=== PATIENT | female | born 1935 | race Caucasian/White ===

== ENCOUNTER → 2017-09-06 13:17 | Outpatient (CLI) | payer OTHER, SELFPAY ==
--- NOTE | 2017-09-06 13:18 | DI.US.S_ITS ---
Patient Name: RUBY CASTRO date: 1935 Sex: F Attending Physician: John Indications: Date: 09/06/2017 14:13 At the request of: BOBY MCGRATH Procedure: US breast LT limited ULTRASOUND OF LEFT BREAST: 09/06/2017 CLINICAL: Focal left breast pain. Comparison is made to exams dated: 09/06/2017 mammogram, 02/04/2016 mammogram, and 11/19/2014 mammogram - [facility]. Ultrasound of the left breast was performed on the area of interest. Agrawal scale images of the real-time examination were reviewed. IMPRESSION: NEGATIVE There is no sonographic evidence of malignancy. There is no mammographic or sonographic abnormality seen in the left breast to correspond with the pain, however, clinical followup is recommended. A 1 year screening mammogram is recommended. This exam was interpreted at Station ID: [id number]. SUMMARY: This was discussed with the patient at the time of the exam. Electronically Signed By: Alka March M.D. lk/:09/06/2017 14:23:39 letter sent: Clinical Evaluation Ultrasound BI-RADS: 1 Negative Dictated by: Alka March M.D. on 09/06/2017 at 14:22 Approved by: Alka March M.D. on 09/06/2017 at 14:23
--- NOTE | 2017-09-06 13:18 | DI.MG.S_ITS ---
BILATERAL DIGITAL DIAGNOSTIC MAMMOGRAM 3D/2D: 09/06/2017 CLINICAL: Left breast mass with pain. Family history of breast cancer. Comparison is made to exams dated: 02/04/2016 mammogram, 11/19/2014 mammogram, and 03/09/2013 mammogram - [facility]. The tissue of both breasts is heterogeneously dense. This may lower the sensitivity of mammography. No significant masses, calcifications, or other findings are seen in either breast. IMPRESSION: INCOMPLETE: NEEDS ADDITIONAL IMAGING EVALUATION There is no mammographic abnormality seen in the left breast to correspond with the pain, however, ultrasound is recommended. This exam was interpreted at Station ID: [id number]. NOTE: For mammograms, a report in lay terms will be sent to the patient. Approximately 15% of breast malignancies will not be visualized mammographically. In the management of a palpable breast mass, a negative mammogram must not discourage biopsy of a clinically suspicious lesion. Electronically Signed By: Alka barraza/heaven:09/06/2017 13:56:50 letter sent: Additional Imaging Needed ACR BI-RADS Category 0: Incomplete [id number]
== END ==
PROVIDERS: PCP Physician Assistant; Visit Provider Physician Assistant
DX: N64.4 Mastodynia (principal); N63.20 Unspecified lump in the left breast, unspecified quadrant; Z80.3 Family history of malignant neoplasm of breast
CPT/HCPCS: 76642; 77066; 77080; G0279

== ENCOUNTER 2018-02-13 11:15 | Outpatient (RCR) | payer OTHER, SELFPAY ==
--- NOTE | 2018-02-10 15:00 | PT.OIE ---
Current Diagnoses Benign paroxysmal vertigo, unspecified ear (02/10/18) Past Medical History (Last Updated 08/03/17 @ 08:33 by Karen Rossi LPN) Dermatitis (Chronic Unknown) Fibromyalgia (Chronic Unknown) GERD (gastroesophageal reflux disease) (Chronic Unknown) Glaucoma (Chronic Unknown) Hyperlipemia (Chronic Unknown) Hypertension (Chronic Unknown) IBS (irritable bowel syndrome) (Chronic Unknown) Low back pain (Chronic Unknown) Obstructive sleep apnea (Chronic ~2017) Osteoarthritis (Chronic Unknown) Peripheral neuropathy (Chronic Unknown) Chickenpox (Resolved Unknown) Hx of actinic keratosis (Resolved 09/2010) Measles (Resolved Unknown) Mumps (Resolved Unknown) Past Surgical History (Last Updated 08/03/17 @ 08:38 by Karen Rossi LPN) Hx of cataract surgery (Resolved Unknown) Provider Visit Care Team Role Provider Type Moira Lopez PA-C Primary Care Provider Advanced Commercial Account Executive Specialty: Medical Address: [address] [place] [address] Email: [email or web address] Lopez Roman PA-C Attending Provider Advanced Commercial Account Executive Specialty: Medical Address: [address] [place] [address], [facility] Email: Physical Therapy Initial Evaluation PT-OP-A Visit Information Start: 02/10/18 07:03 Freq: Status: Active Protocol: Document 02/10/18 10:30 AMB (Rec: 02/10/18 11:54 AMB [email or web address]) Out-Patient Physical Therapy Visit Information Visit Information Visit Type Initial Evaluation Visit Start Time 10:30 Visit Stop Time 11:15 Total Visit Minutes 45 Visit Number 1 Evaluation Information Evaluation Date 02/10/18 PT-OP-B Current Condition Start: 02/10/18 07:03 Freq: Status: Active Protocol: Document 02/10/18 10:30 AMB (Rec: 02/12/18 09:52 AMB [email or web address]) Current Condition History of Current Condition Onset Date December 2017 Current Complaints dizzy/spinning with getting out of bed History of Current Condition Pt reports new onset spinning. She had one fall when it first happened, but now just goes slow. She went to the walk in clinic and they diagnosed her with R BPPV with a [place]-Hallpike but did not perform an Callie maneuver. She does report multiple eye surgeries in her history as well as history of glaucoma. Chronic bilateral tinnitis, sinus issues. She usually takes Lyrica, but due to an issue with the pharmacy she has been out for the past 3 days. Treatment Goals Patient/Caregiver Goals Stop the spinning Prior Functional Status Baseline Function- ADL's Independent Baseline Function- Mobility Independent Current Functional Impairments (Reported) Functional Limitations- ADL's Slow and careful but still independent Personal Factors Other Personal Factors That May Effect Fibromyalgia, back pain, Therapy/Recovery neuropathy PT-OP-C Subjective Start: 02/10/18 07:03 Freq: Status: Active Protocol: Document 02/10/18 10:30 AMB (Rec: 02/12/18 09:52 AMB [email or web address]) Patient Questionnaires ABC- Activity Specific Balance Confidence Scale ABC Score 30 ABC Functional Impairment 20 to <40% Impaired (Score 61- 80) Dizziness Handicap Inventory DHI Score 58 DHI Functional Impairment 40 to 59% Impaired (Score 40- 59) PT-OP-G Mobility & Gait Start: 02/10/18 07:03 Freq: Status: Active Protocol: Document 02/10/18 10:30 AMB (Rec: 02/12/18 09:52 AMB [email or web address]) OP Gait Assessment Gait Gait Assistance Required: Independent Comments Gait Comments Ambulates carfully without assistive device PT-OP-O Vestibular Start: 02/10/18 07:03 Freq: Status: Active Protocol: Document 02/10/18 10:30 AMB (Rec: 02/12/18 09:52 AMB [email or web address]) Vestibular Assessment Visual Testing Smooth Pursuits Horizontal WFL Smooth Pursuits Vertical WFL Positional Testing [place]-Hallpike Positive Right PT-OP-Q Treatments Start: 02/10/18 07:03 Freq: Status: Active Protocol: Document 02/10/18 10:30 AMB (Rec: 02/12/18 09:52 AMB [email or web address]) Canalithic Repositioning BPPV Treatment Callie Affected Canal(s) R Reps 1 Comments Pt became very nauseous and did vomit after the manuever was complete PT-OP-T Assessment and Plan Start: 02/10/18 07:03 Freq: Status: Active Protocol: Document 02/10/18 10:30 AMB (Rec: 02/12/18 09:52 CAITY [email or web address]) Physical Therapy Assessment Rehab Potential Rehabilitation Potential Good Evaluation Complexity Number of Personal Factors/Comorbidities 1-2 Number of Body Systems Impaired 1-2 Clinical Presentation at Evaluation Stable Impairments Impairments Vestibular Goals Two Impairment Mobility Short Term Goal (STG) The patient will move from sit to stand without dizziness. STG Duration 2 weeks Custodial Goal (LTG) The patient will change direction while walking without dizziness. LTG Duration 4 weeks One Impairment Dizziness Short Term Goal (STG) The patient will show no nystagmus with [place]-Hallpike. STG Duration 2 weeks Custodial Goal (LTG) The patient will perform all bed mobility without spinning. LTG Duration 4 weeks Assessment Summary Assessment The patient attended physical therapy with new onset spinning with bed mobility, and right sided posterior canal BPPV. She was very sensitive to the Callie maneuver (possibly not helped by not being on Lyrica as she is used to) and only tolerated one repetition due to nausea. She did not have spinning after the Callie manuever, but did have clear nystagmus in the first position that lasted approximately 20 seconds. She will benefit from treatment of her BPPV, and then given her age and comorbidities, we will do a more thorough balance assessment at that time to make sure she is back to baseline. Physical Therapy Plan Frequency and Duration Frequency of Treatment 2x/Week Duration of Treatment 4 weeks Plan of Care Start Date 02/10/18 Plan of Care End Date 03/10/18 Therapeutic Interventions Therapeutic Interventions Balance Training Canalithic Repositioning Gait Training Home Exercise Program Neuromuscular Re-education Self-Care/Home Management Therapeutic Activities Therapeutic Exercises Next Visit Focus/Plan Next Note Type Treatment Note Next Visit Plan Reassess Alexander Ledesma
--- NOTE | 2018-02-10 15:00 | PT.OPPOC ---
Current Diagnoses Benign paroxysmal vertigo, unspecified ear (02/10/18) Provider Visit Care Team Role Provider Type Moira Lopez PA-C Primary Care Provider Advanced Change Management Consultant Specialty: Medical Address: [address] [place] [address], [address] Email: [email or web address] Roman PA-C Attending Provider Advanced Change Management Consultant Specialty: Medical Address: [address] [place] [address], [address] Email: Plan Of Care PT-OP-T Assessment and Plan Start: 02/10/18 07:03 Freq: Status: Active Protocol: Document 02/10/18 10:30 AMB (Rec: 02/12/18 09:52 AMB [email or web address]) Physical Therapy Assessment Rehab Potential Rehabilitation Potential Good Evaluation Complexity Number of Personal Factors/Comorbidities 1-2 Number of Body Systems Impaired 1-2 Clinical Presentation at Evaluation Stable Impairments Impairments Vestibular Goals Two Impairment Mobility Short Term Goal (STG) The patient will move from sit to stand without dizziness. STG Duration 2 weks Residential Goal (LTG) The patient will change direction while walking without dizziness. LTG Duration 4 weeks One Impairment Dizziness Short Term Goal (STG) The patient will show no nystagmus with [place]-Hallpike. STG Duration 2 weeks Residential Goal (LTG) The patient will perform all bed mobility without spinning. LTG Duration 4 weeks Assessment Summary Assessment The patient attended physical therapy with new onset spinning with bed mobility, and right sided posterior canal BPPV. She was very sensitive to the Callie maneuver (possibly not helped by not being on Lyrica as she is used to) and only tolerated one repetition due to nausea. She did not have spinning after the Callie manuever, but did have clear nystagmus in the first position that lasted approximately 20 seconds. She will benefit from treatment of her BPPV, and then given her age and comorbidities, we will do a more thorough balance assessment at that time to make sure she is back to baseline. Physical Therapy Plan Frequency and Duration Frequency of Treatment 2x/Week Duration of Treatment 4 weeks Plan of Care Start Date 02/10/18 Plan of Care End Date 03/10/18 Therapeutic Interventions Therapeutic Interventions Balance Training Canalithic Repositioning Gait Training Home Exercise Program Neuromuscular Re-education Self-Care/Home Management Therapeutic Activities Therapeutic Exercises Next Visit Focus/Plan Next Note Type Treatment Note Next Visit Plan Reassess Alexander Ledesma Plan of Care Dates Plan of Care Start Date 02/10/18 Plan of Care End Date 03/10/18 Please Sign and Return: I have reviewed this Plan of Care and certify that the skilled therapy services above are required to meet the patient?s needs. Physician Signature Date Printed Name and Credentials Clinical Instructor Signature Printed Name and Credentials
--- NOTE | 2018-02-13 12:55 | PT.OTN ---
Current Diagnoses Benign paroxysmal vertigo, unspecified ear (02/13/18) Physical Therapy Treatment Note PT-OP-A Visit Information Start: 02/10/18 07:03 Freq: Status: Active Protocol: Document 02/13/18 11:15 AMB (Rec: 02/13/18 12:55 AMB [email or web address]) Out-Patient Physical Therapy Visit Information Visit Information Visit Type Treatment Note Visit Start Time 11:15 Visit Stop Time 11:40 Total Visit Minutes 25 Visit Number 2 PT-OP-B Current Condition Start: 02/10/18 07:03 Freq: Status: Active Protocol: Document 02/10/18 10:30 AMB (Rec: 02/12/18 09:52 AMB [email or web address]) Current Condition History of Current Condition Onset Date December 2017 Current Complaints dizzy/spinning with getting out of bed History of Current Condition Pt reports new onset spinning. She had one fall when it first happened, but now just goes slow. 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 She does report multiple eye surgeries in her history as well as history of glaucoma. Chronic bilateral tinnitis, sinus issues. She usually takes Lyrica, but due to an issue with the pharmacy she has been out for the past 3 days. Treatment Goals Patient/Caregiver Goals Stop the spinning Prior Functional Status Baseline Function- ADL's Independent Baseline Function- Mobility Independent Current Functional Impairments (Reported) Functional Limitations- ADL's Slow and careful but still independent Personal Factors Other Personal Factors That May Effect Fibromyalgia, back pain, Therapy/Recovery neuropathy PT-OP-C Subjective Start: 02/10/18 07:03 Freq: Status: Active Protocol: Document 02/13/18 11:15 AMB (Rec: 02/13/18 12:55 AMB [email or web address]) OP-PT Subjective Patient Comments Patient Comments Pt states she has not had any spinning since her last visit. She has returned to sleeping on her R. PT-OP-G Mobility & Gait Start: 02/10/18 07:03 Freq: Status: Active Protocol: Document 02/10/18 10:30 AMB (Rec: 02/12/18 09:52 AMB [email or web address]) OP Gait Assessment Gait Gait Assistance Required: Independent Comments Gait Comments Ambulates carfully without assistive device PT-OP-O Vestibular Start: 02/10/18 07:03 Freq: Status: Active Protocol: Document 02/10/18 10:30 AMB (Rec: 02/12/18 09:52 AMB [email or web address]) Vestibular Assessment Visual Testing Smooth Pursuits Horizontal WFL Smooth Pursuits Vertical WFL Positional Testing [place]-Hallpike Positive Right PT-OP-Q Treatments Start: 02/10/18 07:03 Freq: Status: Active Protocol: Document 02/13/18 11:15 AMB (Rec: 02/13/18 12:55 AMB [email or web address]) Neuro Re-Education Treatment Balance Activities 1 Details NBOS head turn Other Activities 1 Details Recheck R/L [place]-hallpike Comments and R/L roll with no nystagmus with either Self-Care/Home Management Treatment Education Other Education Pt education in BPPV likliehood of recurrance, incidence, what to do in the future. PT-OP-T Assessment and Plan Start: 02/10/18 07:03 Freq: Status: Active Protocol: Document 02/13/18 11:15 AMB (Rec: 02/13/18 12:55 AMB [email or web address]) Physical Therapy Assessment Assessment Summary Assessment Pt without nystagmus or dizziness with any vestibular testing. Pt feels she is back to her baseline. Physical Therapy Plan Next Visit Focus/Plan Next Visit Plan Pt on hold for 30 days. To call if sx recur. Otherwise ready for d/c.
--- NOTE | 2018-03-21 10:01 | PT.OPDS ---
Current Diagnoses Benign paroxysmal vertigo, unspecified ear (02/13/18) Provider Visit Care Team Role Provider Type Moira Lopez PA-C Primary Care Provider Advanced Forestry Pilot Specialty: Medical Address: [address] [place] [address], [address] Email: [email or web address] PA-C Attending Provider Advanced Forestry Pilot Specialty: Medical Address: [address] [place] [address], [address] Email: Visit Number Visit Number 2 Discharge Summary PT-OP-B Current Condition Start: 02/10/18 07:03 Freq: Status: Active Protocol: Document 02/10/18 10:30 AMB (Rec: 02/12/18 09:52 AMB [email or web address]) Current Condition History of Current Condition Onset Date December 2017 Current Complaints dizzy/spinning with getting out of bed History of Current Condition Pt reports new onset spinning. She had one fall when it first happened, but now just goes slow. She went to the walk in clinic and they diagnosed her with R BPPV with a [place]-Hallpike but did not perform an Callie maneuver. She does report multiple eye surgeries in her history as well as history of glaucoma. Chronic bilateral tinnitis, sinus issues. She usually takes Lyrica, but due to an issue with the pharmacy she has been out for the past 3 days. Treatment Goals Patient/Caregiver Goals Stop the spinning Prior Functional Status Baseline Function- ADL's Independent Baseline Function- Mobility Independent Current Functional Impairments (Reported) Functional Limitations- ADL's Slow and careful but still independent Personal Factors Other Personal Factors That May Effect Fibromyalgia, back pain, Therapy/Recovery neuropathy PT-OP-C Subjective Start: 02/10/18 07:03 Freq: Status: Active Protocol: Document 02/13/18 11:15 AMB (Rec: 02/13/18 12:55 AMB [email or web address]) OP-PT Subjective Patient Comments Patient Comments Pt states she has not had any spinning since her last visit. She has returned to sleeping on her R. PT-OP-G Mobility & Gait Start: 02/10/18 07:03 Freq: Status: Active Protocol: Document 02/10/18 10:30 AMB (Rec: 02/12/18 09:52 AMB [email or web address]) OP Gait Assessment Gait Gait Assistance Required: Independent Comments Gait Comments Ambulates carfully without assistive device PT-OP-O Vestibular Start: 02/10/18 07:03 Freq: Status: Active Protocol: Document 02/10/18 10:30 AMB (Rec: 02/12/18 09:52 AMB [email or web address]) Vestibular Assessment Visual Testing Smooth Pursuits Horizontal WFL Smooth Pursuits Vertical WFL Positional Testing Ne[place]-Hallpike Positive Right PT-OP-T Assessment and Plan Start: 02/10/18 07:03 Freq: Status: Active Protocol: Document 03/21/18 09:53 AMB (Rec: 03/21/18 10:01 AMB [email or web address]) Physical Therapy Assessment Assessment Summary Assessment The patient did not show any signs of BPPV at her last visit. We kept her account open for a month, with the instruction for her to call if her symptoms returned. She has not called, she she is discharged at this time with resolution of her symptoms. Physical Therapy Plan Discharge Physical Therapy Discharge Reasons Goals Met
== END 2018-03-24 09:52 ==
LOC: PHYS 11:15
PROVIDERS: PCP Physician Assistant; Visit Provider Physician Assistant
DX: H81.10 Benign paroxysmal vertigo, unspecified ear (principal)
CPT/HCPCS: 97112; 97161; 97535

== ENCOUNTER → 2018-07-25 09:20 | Outpatient (CLI) | payer OTHER, SELFPAY ==
[2018-07-25 10:56] LABS: Microalbumin Urine Random 6.4 mg/dL (0-1.6)
[2018-07-25 10:59] LABS: Creatinine Urine Random 93.6 mg/dL; Microalbumi Creatinin Ratio Ur 68.3 ug/mg CR (<30)
[2018-07-25 11:18] LABS: Alanine Aminotransferase 18 IU/L (9-52); Albumin 3.9 g/dL (3.5-5.0); Albumin Globulin Ratio 1.3 (1.0-2.8); Alkaline Phosphatase 60 U/L (38-126); Aspartate Aminotransferase 26 IU/L (14-36); BUN Creatinine Ratio 27.1 (6-22); Bilirubin Total 0.5 mg/dL (0.2-1.3); Blood Urea Nitrogen 19 mg/dL (7-17); Calcium 9.3 mg/dL (8.4-10.2); Carbon Dioxide 29 mmol/L (22-32); Chloride 103 mmol/L (98-107); Cholesterol 221 mg/dL (140-199); Estimated Glomerular Filt Rate > 60.0 mL/min (>60); Globulin 3.1 g/dL (1.7-4.1); Glucose 93 mg/dL (80-110); HDL Cholesterol 72 mg/dL (40-60); HEMOLYSIS < 15 (0-50); LDL Cholesterol Calculated 129 mg/dL (<100); Sodium 139 mmol/L (137-145); Triglycerides 98 mg/dL (35-150)
[2018-07-25 11:35] LABS: Vitamin D 25 Hydroxy (D3) 46.8 ng/mL (30.0-100.0)
== END ==
PROVIDERS: PCP Physician Assistant; Visit Provider Physician Assistant
DX: E78.5 Hyperlipidemia, unspecified (principal); I10 Essential (primary) hypertension; M81.0 Age-related osteoporosis without current pathological fracture
CPT/HCPCS: 36415; 80053; 80061; 82043; 82306; 82570

== ENCOUNTER → 2018-08-23 08:45 | Outpatient (CLI) | payer OTHER, SELFPAY ==
--- NOTE | 2018-08-23 08:46 | DI.ECHO.S_ITS ---
[facility]---------+ [facility] +---------+ : : [address] [place] : : : : [id number] : : : : Phone: [phone]---------+ Echocardiogram Report + + :Name: RUBY CASTRO Study Date: 08/23/2018 Height: 63 in : :[facility] Exam Location: IS Weight: 145 lb : : Gender: Female BSA: 1.7 m2 : :: 1935 Age: 83 yrs BP: 125/72 mmHg: :Reason For Study: FATIGUE, IRREGULAR HEART RATE, MV DISEASE : : Performed By: Adrian Wallace : :Referring: BOBY MCGRATH : + + Interpretation Summary The left ventricle is normal in size, wall thickness, and systolic function without any focal wall motion abnormalities with the ejection fraction visually estimated to be 55-60%. Diastolic parameters suggest a relaxation abnormality of the left ventricle, consistent with probable normal filling pressures. There has been no significant change since the previous study. The right ventricle is normal in size and function and is unchanged compared to the previous study. The right ventricular systolic pressure is estimated to be at least 32 mmHg based on an estimated right atrial pressure of 8 mm Hg, and is likely slightly higher compared to previous study. Both atria are normal in size but both atria have mildly increased in size since the prior echo exam. There is mild mitral regurgitation that is unchanged compared to the previous study. There is mild to moderate tricuspid regurgitation that appears slightly more prominent compared but there is no other significant valvular heart disease. The ascending aorta is moderately enlarged but is unchanged compared to the previous study. The patient was in sinus bradycardia between 55-60 bpm with occasional PACs during the exam and a brief pause was noted. Procedure: A two-dimensional transthoracic echocardiogram with color flow and Doppler was performed. The study quality was technically good. Comparison is made with the echocardiogram of 11/30/13. The patient was in sinus bradycardia with heart rates between 55-60 bpm during the exam. The patient had occasional PACs during the exam. And a brief pause noted. Left Ventricle: The left ventricle is normal in size, wall thickness, and systolic function without any focal wall motion abnormalities. There is borderline proximal septal thickening noted. The ejection fraction is estimated to be 55-60%. Diastolic parameters suggest a relaxation abnormality of the left ventricle, consistent with probable normal filling pressures. There has been no significant change since the previous study. Right Ventricle: The right ventricle is normal in size and function. This is unchanged compared to the previous study. Atria: Both atria are normal in size. Both atria have mildly increased in size since the prior echo exam. The interatrial septum is intact with no evidence for an atrial septal defect. Mitral Valve: There is mild mitral annular calcification. There is mild mitral regurgitation. This is unchanged compared to the previous study. Aortic Valve: The aortic valve is trileaflet. The aortic valve is slightly calcified. The aortic valve opens well. No aortic regurgitation is present. Tricuspid Valve: The tricuspid valve is normal in structure and function. There is mild to moderate tricuspid regurgitation. This is slightly more prominent compared to the previous study. The right ventricular systolic pressure is estimated to be at least 32 mmHg based on an estimated right atrial pressure of 8 mm Hg. And is likely slightly higher compared to previous study. Pulmonic Valve: The pulmonic valve is not well seen, but is grossly normal. There is trace pulmonic regurgitation. There is no other significant valvular heart disease. Great Vessels: The aortic root is normal size. The ascending aorta is moderately enlarged. This is unchanged compared to the previous study. The pulmonary artery is normal size. The IVC is of normal diameter and collapses less than 50% with a sniff. This suggests a right atrial pressure of 8 mm Hg. Pericardium/ Pleura There is no pericardial effusion. There is no pleural effusion. MMode/2D Measurements & Calculations LVIDd: 4.4 cm LVOT diam: 1.9 cm LVIDs: 3.3 cm Ao root diam: 3.1 cm FS: 25.1 % Aortic Jxn: 2.3 cm EPSS: 0.52 cm asc Aorta Diam: 4.0 cm IVSd: 0.83 cm Ao Arch Diam (Prox Trans): 2.6 cm LVPWd: 0.87 cm LV hernandes. diameter/BSA (cm/m^2): 2.6 LV sys. diameter/BSA (cm/m^2): 2.0 LA dimension: 2.7 cm RA long axis: 4.5 cm LA A2 area: 18.9 cm2 RA area: 16.5 cm2 LA A4 area: 14.8 cm2 RA vol: 51.7 ml LA length (vol): 4.6 cm RA : 30.6 ml/m2 LA vol: 51.1 ml IVC diam: 1.6 cm LA vol index: 30.3 ml/m2 Doppler Measurements & Calculations Ao V2 max: 123.0 cm/sec LVOT Max Les: 83.0 cm/sec Ao V2 mean: 89.4 cm/sec LV V1 max P.8 mmHg Ao max P.1 mmHg LV V1 VTI: 19.8 cm Ao mean P.5 mmHg SERGO(I,D): 1.9 cm2 Ao V2 VTI: 28.3 cm SERGO(V,D): 1.8 cm2 sev ratio: 0.70 SERGO indexed to BSA (cm^2/m^2): 1.1 MV E max les: 68.4 cm/sec TR max les: 244.5 cm/sec MV A max les: 87.9 cm/sec TR max P.9 mmHg MV E/A: 0.78 PA V2 max: 57.3 cm/sec Med Peak E' Les: 6.6 cm/sec PA V2 mean: 46.5 cm/sec E/E' med: 10.4 PA mean P.91 mmHg Lat Peak E' Les: 7.3 cm/sec PA pr(Accel): 39.1 mmHg E/E' lat: 9.3 PA Accel Time: 0.09 sec E/e' average: 9.8 MV dec time: 0.31 sec SV(LVOT): 53.4 ml Reading Physician:NICOLE
== END ==
PROVIDERS: PCP Physician Assistant; Visit Provider Physician Assistant
DX: I08.1 Rheumatic disorders of both mitral and tricuspid valves (principal); I49.9 Cardiac arrhythmia, unspecified; R53.83 Other fatigue; I77.89 Other specified disorders of arteries and arterioles
CPT/HCPCS: 0296T; 0298T; 93306

== ENCOUNTER → 2018-08-23 09:49 | Outpatient (CLI) | payer OTHER, SELFPAY ==
--- NOTE | 2018-09-05 08:39 | PM.CARDMON.1 ---
Tile Layer Supervisor Report Referral & Results Date Patient Seen: 08/23/18 Requesting provider: Moira Lopez Indication: Arrhythmia Duration of monitoring (days): 7 Diary information: There 5 patient diary entries present associated with sinus rhythm, PACs, PVCs, and ventricular bigeminy There 3 patient triggered events associated with sinus rhythm, PACs, PVCs, ventricular bigeminy and ventricular trigeminy Data: Minimum heart rate identified is 50 beats per minute at 12:20 on 08/27/2018 Maximum heart rate identified was 126 beats per minute at 07:03 on 08/29/2018 There were rare PACs identified There more frequent PVCs identified, approximately 5.6% of identified beats were ventricular ectopic in origin including up to 4+ minutes of ventricular trigeminy and a little over a minute of ventricular bigeminy (at the longest) Impression: This monitor identifies relatively frequent PVCs including relatively brief runs of ventricular bigeminy and ventricular trigeminy. These are most likely source of patient's reported symptoms Clinical correlation suggested
== END ==
PROVIDERS: PCP Physician Assistant; Visit Provider Physician Assistant
DX: I49.9 Cardiac arrhythmia, unspecified (principal)
CPT/HCPCS: 0296T

== ENCOUNTER → 2018-08-29 08:48 | Outpatient (CLI) | payer OTHER, SELFPAY ==
--- NOTE | 2018-08-29 08:50 | DI.RAD.S_ITS ---
PROCEDURE: FL BARIUM SWALLOW W SPEECH INDICATIONS: Dysphagia History of esophageal dilation and hiatal hernia TECHNIQUE: Examination was conducted in conjunction with speech pathology per standard protocol. In the lateral projection, filming was performed of the patient swallowing. AP projection filming may also be performed with patient swallowing. COMPARISON: [facility], , BARIUM SWALLOW, 08/28/2015, 10:42. FINDINGS: Function: The oral preparatory phase appears normal, with proper containment. The subsequent oral propulsive phase, pharyngeal phase, and esophageal phase of swallowing also appear normal with all proffered substances. Frequent silent laryngeal penetration with thin and nectar thick barium consistencies. Morphology: No cricopharyngeal bar is identified. No cervical esophageal webs. No Zenker's diverticulum. No strictures. IMPRESSION: Frequent silent laryngeal penetration Dictated by: Moose Steel M.D. on 08/29/2018 at 11:52 Approved by: Moose Steel M.D. on 08/29/2018 at 11:53
--- NOTE | 2018-08-30 17:21 | ST.SWALLOW ---
Care Team Visit Care Team Role Provider Type Moira Lopez PA-C Attending Provider Advanced Trade Mark Attorney Primary Care Provider Specialty: Medical Address: [address] [place] [address], [id number] Email: [email or web address] Modified Barium Swallow Study COVER MAKING MACHINE OPERATOR Modified Barium Swallow Study Start: 08/30/18 16:26 Freq: Status: Active Protocol: Document 08/29/18 16:26 QUINCY (Rec: 08/30/18 17:21 QUINCY [id number]) Modified Barium Swallow Study Total Time Visit Start Time 09:30 Visit Stop Time 10:30 Total Visit Minutes 60 Referral Referring Physician JESSICA Rosales Reason for Referral Dysphagia History of esophageal dilation and hiatal hernia Setting Setting Outpatient Care Patient Information Identification Type Name ID Card Patient History 83-yr-old female with history of esophageal dilation and hiatal hernia presents with complaints of swallow difficulty including frequent coughing and occasional sticking sensation with intake . MBSS ordered to assess aspiration risk and guide POC. Subjective Observations The pt arrived on time and provided case history. Patient Positioning Position View Lat-A/P Imaging Lateral View Textures Administered Trials Presented Thin Liquid via Spoon Thin Liquid via Cup [place] Liquid via Spoon [place] Liquid via Cup Honey Liquid via Spoon Pudding Thick Liquid via Spoon Oral Phase Source: MBSIMP (TM) (C) Bolus Specific Scoring Grid Lip Closure No Impairment (WNL) Tongue Control During Bolus Hold WFL Bolus Prep/Mastication WFL Bolus Transport/Lingual Motion WFL A/P Lingual Propulsion Delay No Oral Residue Mild Impairment Residue Clearing WFL Nasal Regurgitation No Pharyngeal Phase Source: MBSIMP (TM) (C) Bolus Specific Scoring Grid Delayed Initiation of Pharyngeal Swallow No: Exception 1st trial to posterior epiglottis Soft Palate Elevation No Impairment (WNL) Tongue Base Strength/Range of Motion Moderate Impairment Residue Along the Tongue Base Yes Clearance of Residue Along Tongue Base Minimal Impairment Laryngeal Elevation WFL Anterior Hyoid Movement Mild Impairment Epiglottic Range of Motion No Impairment (WNL) Vallecular Residue Yes Clearance of Vallecular Residue Mild Impairment Laryngeal Vestibular Closure Moderate Impairment Pharyngeal Stripping Wave Moderate Impairment Pharyngeal Contraction No Impairment (WNL) Posterior Pharyngeal Wall Residue Yes Clearance of Posterior Pharyngeal Wall Minimal Impairment Residue Upper Esophageal Sphincter Opening No Impairment (WNL) Residue in the Pyriform Sinuses Yes Clearance of Residue in the Pyriform Minimal Impairment Sinuses Esophageal Clearance Upright Position Minimal Impairment Pharyngoesophageal Backflow Observed No Additional Pharyngeal Phase Observations Penetration of thin and nectar -thick liquids to VFs in tsp and single cup presentations, silent in nature. No clearance of laryngeal residue with prompts to cough. Mild pharyngeal residue present and mostly cleared with subsequent swallows but with frequently penetrated in laryngeal vestibule. Minimal benefit from chin tuck. Reduced hyolaryngeal anterior excursion contributes to incomplete airway closure. Reduced base of tongue strength and reduced stripping wave contribute to pharyngeal residue. Good transport and pharyngeal clearance of HTL, pudding and cookie with no airway compromise observed with these textures. A/P View Textures Administered Trials Presented Dysphagia Blenderized Textures Barium Tablet A/P View Observations Pharyngeal Contraction No Impairment (WNL) Esophageal Function Stasis Esophageal Clearance Upright Position Minimal Impairment Esophageal Observations Esophageal Function Distal stasis observed with pudding trial, cleared with thin liquid wash. 13mm Barium tablet passed to stomach without difficulty. Clinical Impressions Dysphagia Type Mild-moderate pharyngeal dysphagia Findings Secondary to reduced strength, coordination, and/or ROM of pharyngeal musculature resulting in frequent penetration of thin and nectar -thick liquids equally to level of VFs, silent in nature . Aspiration was not directly observed; however, trace tracheal residue was observed indicating aspiration. Minimal benefit from chin tuck was observed. No airway compromise and improved pharyngeal clearance observed with HTL, pudding and cookie trials. The pt was educated on results and recommended to consume thin or naturally nectar-thick liquids in single sips only with limited distractions. Outpatient therapy was recommended for further education and training of safe swallow strategies and exercises to increase strength , coordination and ROM of swallow musculature to reduce risk of aspiration. She verbalized agreement. Rehabilitation Potential Good Patient Appropriate for Therapy Yes Recommendations Diet Liquids Order Thin Diet Order Regular Medication Recommendation As Tolerated Additional Dietary Needs Single Sips Aspiration Precautions Recommended Precautions Upright at 90 Degrees Small Bites/Sips Effortful Swallow Double Swallow Supersupraglottic Swallow Radha Maneuvor Additional Precautions Minimize distractions Treatment Plan Therapy Recommendations Outpatient Speech Therapy Lingual Exercises Base of Tongue Exercises Vocal Fold Adduction Exercises Compensatory Strategy Education Compensatory Strategies Recommendations Sitting Upright (90 deg) Double Swallow Supersupraglottic Swallow Mendelsonn Maneuver Small Bites and Sips Short Term Goals Pt will perform safe swallow strategies and swallow exercises to reduce risk of aspiration. Care Home Goals Pt will consume least restrictive diet to meet her nutrition and hydration needs. Placement Recommendation After Discharge Home Outpatient Therapy
== END ==
PROVIDERS: PCP Physician Assistant; Visit Provider Physician Assistant
DX: R13.10 Dysphagia, unspecified (principal); K44.9 Diaphragmatic hernia without obstruction or gangrene
CPT/HCPCS: 74230; 92611

== ENCOUNTER → 2018-09-11 10:25 | Outpatient (CLI) | payer OTHER, SELFPAY ==
[2018-09-13 15:09] LABS: Fecal Immunochemical Test NOT DETECTED (NOT DETECTED)
== END ==
PROVIDERS: PCP Physician Assistant; Visit Provider Physician Assistant
DX: Z12.11 Encounter for screening for malignant neoplasm of colon (principal)
CPT/HCPCS: 82274

== ENCOUNTER 2018-10-03 12:57 | Outpatient (RCR) | payer OTHER, SELFPAY ==
--- NOTE | 2018-10-04 11:15 | ST.IPDYTX ---
Care Team Visit Care Team Role Provider Type Moira Lopez PA-C Attending Provider Advanced Deep Sea Diver Primary Care Provider Specialty: Medical Address: [address] [place] [address], [id number] Email: [email or web address] TRANSMISSIONS SYSTEMS OPERATOR Dysphagia Treatment TRANSMISSIONS SYSTEMS OPERATOR Dysphagia Treatment Start: 10/04/18 11:02 Freq: Status: Active Protocol: Document 10/04/18 11:02 TLC (Rec: 10/04/18 11:15 TLC [id number]) Dysphagia Treatment Session Time Visit Start Time 13:30 Visit Stop Time 14:10 Total Visit Minutes 40 Visit Information Visit Number 1 Plan of Care Dates 10/03/18-10/04/18 Setting Assessment Location Outpatient Care Visit Type Note Type Treatment Note Next Note Type Next Note Type Discharge Summary Patient Information Subjective Observations Shannen arrived on time. She was pleasant and cooperative during the session. Treatment Treatment Activities Follow-up visit. Patient had a Modified Barium Swallow Study in August of 2018 which revealed mild-moderate pharyngeal dysphagia secondary to reduced strength, coordination, and/or ROM of pharyngeal musculature resulting in frequent penetration of thin and nectar -thick liquids . Recommendations included regular diet with double swallow and general aspiration precautions as well as strengthening exercises. Shannen was able to recall exercises including Angelica, Radha, and Tongue strengthening and states she has been compliant in performing these in sets of 10 with 3-4 sets per day. She has noticed a decrease in her symptoms which were occasional coughing and globus sensation. Education was provided regarding general swallowing anatomy, penetration/aspiration and risks. We reviewed the current exercises which she was observed to perform correctly and discussed an additional exercise, tongue pull backs, to improve tongue base retraction. Swallowing precautions, specifically use of a double swallow and small bites/sips were emphasized and explained. She expressed understanding and appreciation . Assessment Patient Response to Treatment Excellent Rehab Potential Excellent Assessment of Improvement Patient is compliant with HEP and has noticed decrease in symptoms. No further speech therapy warranted. Diet Recommendations Recommendations Continue Current Diet Liquids Order Thin Diet Order Regular Medication Recommendations As Tolerated Whole in Carrier Aspiration Precautions Recommended Precautions Small Bites/Sips Double Swallow Treatment Plan Placement Recommendation after Discharge Home Appropriate for Continued Therapy No Therapy Recommendations D/c from ST.
== END 2018-10-11 12:47 | disposition home or self-care (01) ==
LOC: SP 12:57
PROVIDERS: PCP Physician Assistant; Visit Provider Physician Assistant
DX: R13.10 Dysphagia, unspecified (principal)
CPT/HCPCS: 92526

== ENCOUNTER → 2018-11-17 14:47 | Outpatient (CLI) | payer OTHER, SELFPAY ==
[2018-11-17 17:02] LABS: Thyroid Stimulating Hormone 1.52 uIU/mL (0.47-4.68)
== END ==
PROVIDERS: PCP Physician Assistant; Visit Provider Internal Medicine Cardiovascular Disease
DX: I49.3 Ventricular premature depolarization (principal)
CPT/HCPCS: 36415; 83735; 84443

== ENCOUNTER → 2019-01-29 10:52 | Outpatient (CLI) | payer OTHER, SELFPAY | PROVIDERS: PCP Physician Assistant; Visit Provider Physician Assistant | DX: N30.01 Acute cystitis with hematuria (principal) | CPT/HCPCS: 87077; 87086; 87186 ==

== ENCOUNTER → 2019-02-07 14:34 | Outpatient (CLI) | payer OTHER, SELFPAY ==
--- NOTE | 2019-02-08 13:48 | DI.NM.S_ITS ---
DATE OF SERVICE: 02/07/2019 PROCEDURE: Pharmacological perfusion study. INDICATIONS: Frequent PVCs with underlying hypertension. RADIOPHARMACEUTICAL: 26.1 mCi of technetium-99m Myoview IV was injected at stress and 25.7 of mCi technetium-99m Myoview IV was injected at rest. CARDIAC STRESS: Patient underwent IV Lexiscan perfusion study under the supervision of an attending staff using standard protocol. She remained hemodynamically stable. Had minimal dyspnea. No chest discomfort. Baseline EKG revealed sinus rhythm with some nonspecific ST-T changes. During Lexiscan injection, no convincing ischemic changes. No new significant arrhythmias. No reversal agent required. RAW DATA: There was increased subdiaphragmatic activity. Breast shadow was seen as well. GATED STUDY: Resting stress LV ejection fraction 82%. Stress LV ejection fraction 92% without any obvious wall motion abnormalities. No transient ischemic dilatation. TID ratio is 0.93, which is within normal limits. Resting LV end-diastolic volume is 56 mL. Lung/heart ratio is 0.30, which is within normal limits. MYOCARDIAL PERFUSION SCAN: please note, this patient does not have any prone images. Stress supine and resting supine images were compared to each other. Stress supine images revealed normal myocardial perfusion. On resting supine images, there was small-sized mildly decreased perfusion of inferior wall and inferolateral wall. However, during stress supine, those defects were not seen. CONCLUSION: I will call this study a normal myocardial perfusion study as patient has normal myocardial perfusion during stress supine. Patient had exercise perfusion study in 03/2011. At that time also, there was normal myocardial perfusion with evidence of tissue attenuation artifact due to breast attenuation artifact at that time. At that time, she was able to walk on Javier protocol for 6 minutes. This is a pharmacological perfusion study. Overall, this is a low-risk myocardial perfusion scan. Shannen Melton - MALACHI/david/ doc#: [id number]/job#: [id number] dd: 02/08/2019 13:07:00 dt: 02/08/2019 13:41:00 DICTATING MD/COPIES TO: Uche Chan MD COPIES MNE: HERNANDO
== END ==
PROVIDERS: Family Provider Physician Assistant; PCP Physician Assistant; Visit Provider Internal Medicine Cardiovascular Disease
DX: I49.3 Ventricular premature depolarization (principal); I10 Essential (primary) hypertension
CPT/HCPCS: 78452; 93016; 93017; 93018; A9502; J2785

== ENCOUNTER → 2019-08-24 11:10 | Outpatient (CLI) | payer OTHER, SELFPAY ==
[2019-08-24 11:59] LABS: Add Manual Diff / Slide Review NO; Basophils Absolute Auto 100 /uL (0-100); Basophils Percent Auto 1.2 % (0-2); Eosinophils Absolute Auto 200 /uL (0-450); Eosinophils Percent Auto 3.1 % (2-4); Hematocrit 35.7 % (36-46); Hemoglobin 12.3 g/dL (12.0-16.0); Lymphocytes Absolute Auto 2200 /uL (1100-4500); Lymphocytes Percent Auto 31.3 % (25-40); Mean Corpuscular HGB Conc 34.3 % (30-36); Mean Corpuscular Hemoglobin 32.2 PG (26-34); Mean Corpuscular Volume 93.6 fL (80-100); Monocytes Absolute Auto 700 /uL (0-900); Monocytes Percent Auto 10.4 % (3-14); Neutrophils Absolute Auto 3700 /uL (1500-7000); Platelet Count 206 X10^3/uL (150-400); Red Blood Cell Count 3.81 X10^6/uL (4.0-5.2); Red Cell Distribution Width 13.3 % (11.6-14.8); White Blood Cell Count 6.9 X10^3/uL (4.5-11.0)
[2019-08-24 12:23] LABS: Alanine Aminotransferase 16 IU/L (<35); Albumin 3.7 g/dL (3.5-5.0); Albumin Globulin Ratio 1.4 (1.0-2.8); Alkaline Phosphatase 52 U/L (38-126); Aspartate Aminotransferase 26 IU/L (14-36); BUN Creatinine Ratio 22.4 (6-22); Bilirubin Total 0.4 mg/dL (0.2-1.3); Blood Urea Nitrogen 15 mg/dL (7-17); Calcium 9.3 mg/dL (8.4-10.2); Carbon Dioxide 29 mmol/L (22-32); Chloride 100 mmol/L (98-107); Estimated Glomerular Filt Rate > 60.0 mL/min (>60); Globulin 2.6 g/dL (1.7-4.1); Glucose 63 mg/dL (80-110); HEMOLYSIS < 15 (0-50); Sodium 133 mmol/L (137-145); Total Protein 6.3 g/dL (6.3-8.2)
[2019-08-24 12:51] LABS: Thyroid Stimulating Hormone 3.45 uIU/mL (0.47-4.68)
[2019-08-24 13:28] LABS: Folate 13.8 ng/mL (2.76-20.0); Vitamin B12 944 pg/mL (239-931)
== END ==
PROVIDERS: Family Provider Physician Assistant; PCP Family Medicine; Referring Provider Psychiatry & Neurology Neurology; Visit Provider Psychiatry & Neurology Neurology
DX: Z51.81 Encounter for therapeutic drug level monitoring (principal); G60.8 Other hereditary and idiopathic neuropathies; R53.83 Other fatigue
CPT/HCPCS: 36415; 80053; 82607; 82746; 84443; 85025

== ENCOUNTER → 2019-09-25 10:18 | Outpatient (CLI) | payer OTHER, SELFPAY ==
--- NOTE | 2019-09-25 | DI.MG.S_ITS ---
BILATERAL DIGITAL SCREENING MAMMOGRAM 3D/2D WITH CAD: 09/25/2019 CLINICAL: Routine screening. Family history of breast cancer. Comparison is made to exams dated: 09/06/2017 mammogram, 02/04/2016 mammogram, and 11/19/2014 mammogram - [facility]. The tissue of both breasts is heterogeneously dense. This may lower the sensitivity of mammography. Current study was also evaluated with a Computer Aided Detection (CAD) system. No significant masses, calcifications, or other findings are seen in either breast. There has been no significant interval change. IMPRESSION: NEGATIVE There is no mammographic evidence of malignancy. A 1 year screening mammogram is recommended. This exam was interpreted at Station ID: [id number]. NOTE: For mammograms, a report in lay terms will be sent to the patient. Approximately 15% of breast malignancies will not be visualized mammographically. In the management of a palpable breast mass, a negative mammogram must not discourage biopsy of a clinically suspicious lesion. Electronically Signed By: Alka barraza/heaven:09/25/2019 11:39:38 letter sent: Normal Exam ACR BI-RADS Category 1: Negative [id number]
== END ==
PROVIDERS: Family Provider Physician Assistant; PCP Family Medicine; Referring Provider Family Medicine; Visit Provider Family Medicine
DX: Z12.31 Encounter for screening mammogram for malignant neoplasm of breast (principal); Z80.3 Family history of malignant neoplasm of breast
CPT/HCPCS: 77063; 77067

== ENCOUNTER → 2020-01-22 11:24 | Outpatient (CLI) | payer OTHER, SELFPAY ==
[2020-01-22 12:38] LABS: Add Manual Diff / Slide Review NO; Basophils Absolute Auto 100 /uL (0-100); Eosinophils Absolute Auto 200 /uL (0-450); Eosinophils Percent Auto 3.2 % (2-4); Hematocrit 36.3 % (36-46); Hemoglobin 12.2 g/dL (12.0-16.0); Lymphocytes Absolute Auto 1700 /uL (1100-4500); Mean Corpuscular HGB Conc 33.5 % (30-36); Mean Corpuscular Hemoglobin 31.5 PG (26-34); Mean Corpuscular Volume 93.9 fL (80-100); Monocytes Absolute Auto 500 /uL (0-900); Monocytes Percent Auto 7.9 % (3-14); Neutrophils Absolute Auto 4400 /uL (1500-7000); Neutrophils Percent Auto 63.9 % (50-75); Platelet Count 191 X10^3/uL (150-400); Red Blood Cell Count 3.86 X10^6/uL (4.0-5.2); Red Cell Distribution Width 13.8 % (11.6-14.8); White Blood Cell Count 6.9 X10^3/uL (4.5-11.0)
[2020-01-22 13:16] LABS: Alanine Aminotransferase 22 IU/L (<35); Albumin 3.5 g/dL (3.5-5.0); Albumin Globulin Ratio 1.3 (1.0-2.8); Alkaline Phosphatase 49 U/L (38-126); Aspartate Aminotransferase 30 IU/L (14-36); BUN Creatinine Ratio 20.6 (6-22); Bilirubin Total 0.5 mg/dL (0.2-1.3); Blood Urea Nitrogen 13 mg/dL (7-17); Calcium 8.8 mg/dL (8.4-10.2); Carbon Dioxide 29 mmol/L (22-32); Chloride 101 mmol/L (98-107); Estimated Glomerular Filt Rate > 60.0 mL/min (>60); Globulin 2.6 g/dL (1.7-4.1); Glucose 98 mg/dL (80-110); HEMOLYSIS < 15 (0-50); Potassium 4.4 mmol/L (3.4-5.1); Sodium 134 mmol/L (137-145); Total Protein 6.1 g/dL (6.3-8.2)
== END ==
PROVIDERS: Family Provider Physician Assistant; PCP Family Medicine; Referring Provider Psychiatry & Neurology Neurology; Visit Provider Psychiatry & Neurology Neurology
DX: Z51.81 Encounter for therapeutic drug level monitoring (principal)
CPT/HCPCS: 36415; 80053; 85025

== ENCOUNTER → 2020-03-26 11:05 | Outpatient (CLI) | payer OTHER, SELFPAY ==
[2020-03-26] MEDS: COVID-19 VACC #1, MRNA(MOD) 100 MCG/0.5 ML VIAL IM (11:11)
== END ==
PROVIDERS: Family Provider Physician Assistant; PCP Family Medicine; Visit Provider Internal Medicine
DX: Z23 Encounter for immunization (principal)
CPT/HCPCS: 0011A; 91301

== ENCOUNTER → 2020-04-23 10:56 | Outpatient (CLI) | payer OTHER, SELFPAY ==
[2020-04-23] MEDS: COVID-19 VACC #2, MRNA(MOD) 100 MCG/0.5 ML VIAL IM (11:07)
== END ==
PROVIDERS: Family Provider Physician Assistant; PCP Family Medicine; Visit Provider Internal Medicine
DX: Z23 Encounter for immunization (principal)
CPT/HCPCS: 0012A; 91301

== ENCOUNTER → 2020-08-11 13:23 | Outpatient (CLI) | payer OTHER, SELFPAY | PROVIDERS: Family Provider Physician Assistant; PCP Family Medicine; Visit Provider Physician Assistant | DX: R30.0 Dysuria (principal) | CPT/HCPCS: 87077; 87086; 87147 ==

== ENCOUNTER → 2020-10-27 08:51 | Outpatient (CLI) | payer OTHER, SELFPAY ==
[2020-10-27 10:11] LABS: Alanine Aminotransferase 23 IU/L (<35); Albumin 3.6 g/dL (3.5-5.0); Albumin Globulin Ratio 1.3 (1.0-2.8); Alkaline Phosphatase 59 U/L (38-126); Aspartate Aminotransferase 31 IU/L (14-36); BUN Creatinine Ratio 21.2 (6-22); Bilirubin Total 0.3 mg/dL (0.2-1.3); Blood Urea Nitrogen 14 mg/dL (7-17); Calcium 9.3 mg/dL (8.4-10.2); Carbon Dioxide 30 mmol/L (22-32); Chloride 102 mmol/L (98-107); Cholesterol 133 mg/dL (140-199); Estimated Glomerular Filt Rate > 60.0 mL/min (>60); Globulin 2.7 g/dL (1.7-4.1); Glucose 94 mg/dL (80-110); HDL Cholesterol 76 mg/dL (40-60); HEMOLYSIS < 15 (0-50); LDL Cholesterol Calculated 43 mg/dL (<100); Potassium 5.1 mmol/L (3.4-5.1); Sodium 136 mmol/L (137-145); Total Protein 6.3 g/dL (6.3-8.2); Triglycerides 69 mg/dL (35-150)
== END ==
PROVIDERS: Family Provider Physician Assistant; PCP Family Medicine; Referring Provider Internal Medicine Cardiovascular Disease; Visit Provider Internal Medicine Cardiovascular Disease
DX: I36.1 Nonrheumatic tricuspid (valve) insufficiency (principal); E78.89 Other lipoprotein metabolism disorders
CPT/HCPCS: 36415; 80053; 80061

== ENCOUNTER → 2021-05-15 14:25 | Outpatient (CLI) | payer OTHER, SELFPAY ==
--- NOTE | 2021-05-15 | DI.ECHO.S_ITS ---
[place] +---------+ [facility] +---------+ : : [address] : : : : [id number] : : : : Phone: [phone]+ Echocardiogram Report + + :Name: RUBY CASTRO Study Date: 05/15/2021 Height: 63 in : :[facility] ReadingLocation: Weight: 140 lb : : Gender: Female BSA: 1.7 m2 : :: 1935 Age: 86 yrs BP: 130/78 mmHg: :Reason For Study: Tricuspid Valve - Regurgitation : :Ordering Physician: Uche Hitchcock : :Simone Chan Performed By: Fani Nugent : :Referring: JEANIE Lopez : + + Interpretation Summary The left ventricle is normal in size. The ejection fraction is estimated to be 55-60%. There has been no significant change in LVEF since the previous exam. The right ventricle is normal in size and function. There is mild to moderate tricuspid regurgitation. Compared to the prior echo exam, there has been no change in TR severity. The right ventricular systolic pressure is estimated to be at least 32 mmHg based on an estimated right atrial pressure of 8 mm Hg. The ascending aorta is moderately enlarged. 4.1 cm in diameter. Previously 4.0 cm in diameter. There is mild luminal irregularity and echogenicity in the abdominal aorta, suggestive of aortic atherosclerotic disease. Procedure: A two-dimensional transthoracic echocardiogram with color flow and Doppler was performed. The study quality was technically adequate. Comparison is made with the echocardiogram of 08/23/2018. The patient was in normal sinus rhythm during the exam. Left Ventricle: The left ventricle is normal in size. There is normal left ventricular wall thickness. There is no thrombus. A false chord is noted (normal variant). The ejection fraction is estimated to be 55-60%. There has been no significant change since the previous exam. There are no focal wall motion abnormalities. Diastolic parameters suggest a relaxation abnormality of the left ventricle, consistent with probable normal filling pressures. Right Ventricle: The right ventricle is normal in size and function. Atria: Both atria are normal in size. Both atria have remained unchanged in size since the prior echo exam. Mitral Valve: There is mild mitral annular calcification. There is mild mitral regurgitation. Compared to the prior echo study, there has been no change in the severity of mitral regurgitation. Aortic Valve: The aortic valve is trileaflet. There is mild aortic valve sclerosis. There is no aortic valve stenosis. No aortic regurgitation is present. Tricuspid Valve: The tricuspid valve is not well visualized, but is grossly normal. There is mild to moderate tricuspid regurgitation. The right ventricular systolic pressure is estimated to be at least 32 mmHg based on an estimated right atrial pressure of 8 mm Hg. Compared to the prior echo exam, there has been no change in TR severity. Compared to the prior echo exam, there has been no change in the severity of pulmonary hypertension. Pulmonic Valve: The pulmonic valve is not well visualized. There is trace pulmonic regurgitation. Great Vessels: The aortic root is normal size. The ascending aorta is moderately enlarged. The aortic arch is normal in size. There is mild luminal irregularity and echogenicity in the abdominal aorta, suggestive of aortic atherosclerotic disease. The IVC is of normal diameter and collapses less than 50% with a sniff. This suggests a right atrial pressure of 8 mm Hg. Pericardium/ Pleura There is no pericardial effusion. There is an anterior echo-free space consistent with a fat pad. MMode/2D Measurements & Calculations LVIDd: 4.2 cm LVOT diam: 1.6 cm LVIDs: 2.6 cm Ao root diam: 3.3 cm FS: 38.5 % asc Aorta Diam: 4.1 cm EPSS: 0.63 cm Ao Arch Diam (Prox Trans): 2.3 cm IVSd: 0.47 cm LVPWd: 0.53 cm LV hernandes. diameter/BSA (cm/m^2): 2.5 LV sys. diameter/BSA (cm/m^2): 1.6 LA A2 area: 20.0 cm2 RA long axis: 4.5 cm LA A4 area: 16.8 cm2 RA area: 12.9 cm2 LA length (vol): 5.2 cm RA vol: 31.2 ml LA vol: 54.6 ml RA : 18.7 ml/m2 LA vol index: 32.8 ml/m2 IVC diam: 1.8 cm RVD1 (basal): 3.8 cm TAPSE: 3.0 cm Doppler Measurements & Calculations Ao V2 max: 122.3 cm/sec LVOT Max Les: 90.2 cm/sec Ao V2 mean: 91.4 cm/sec LV V1 max P.3 mmHg Ao max P.0 mmHg LV V1 VTI: 23.9 cm Ao mean P.6 mmHg SERGO(I,D): 1.6 cm2 Ao V2 VTI: 31.0 cm SERGO(V,D): 1.5 cm2 sev ratio: 0.77 SERGO indexed to BSA (cm^2/m^2): 0.97 MV E max les: 82.3 cm/sec TR max les: 244.1 cm/sec MV A max les: 93.6 cm/sec TR max P.8 mmHg MV E/A: 0.88 PA V2 max: 72.6 cm/sec Med Peak E' Les: 7.0 cm/sec PA V2 mean: 55.3 cm/sec E/E' med: 11.8 PA mean P.3 mmHg Lat Peak E' Les: 8.6 cm/sec PA pr(Accel): 28.9 mmHg E/E' lat: 9.6 E/e' average: 10.7 MV dec time: 0.28 sec SV(LVOT): 50.1 ml Reading Physician:10:54 AM
== END ==
PROVIDERS: Family Provider Physician Assistant; PCP Family Medicine; Referring Provider Internal Medicine Cardiovascular Disease; Visit Provider Internal Medicine Cardiovascular Disease
DX: I08.3 Combined rheumatic disorders of mitral, aortic and tricuspid valves (principal); I77.810 Thoracic aortic ectasia; I77.89 Other specified disorders of arteries and arterioles
CPT/HCPCS: 93306

== ENCOUNTER 2021-07-10 12:23 | Emergency (ER) | payer OTHER, SELFPAY ==
[2021-07-10] VITALS (13 sets, daily range): BP systolic 149–199; BP diastolic 65–89; PULSE 57–67; RESP 13–21; TEMP 36.6; O2SAT 98–100; BMI 24.7
--- NOTE | 2021-07-10 12:38 | DI.RAD.S_ITS ---
PROCEDURE: XR CHEST 1V INDICATIONS: chest pain TECHNIQUE: One view of the chest was acquired. COMPARISON: [facility], , CHEST 2 VIEW, 11/29/2008, 8:11. FINDINGS: Surgical changes and devices: None. Lungs and pleura: Lungs are clear. No pleural effusions or pneumothorax. Mediastinum: Mediastinal contours appear normal. Heart size is normal. Bones and chest wall: No suspicious bony lesions. Overlying soft tissues appear unremarkable. IMPRESSION: No acute cardiopulmonary pathology. Dictated by: Markus Ayala M.D. on 07/10/2021 at 13:29 Approved by: Markus Ayala M.D. on 07/10/2021 at 13:31
--- NOTE | 2021-07-10 13:19 | ED.GENADULT ---
HPI - General Adult General Chief complaint: Dizziness Stated complaint: Dizzy Time Seen by Provider: 07/10/21 13:05 Source: patient Mode of arrival: Ambulatory History of Present Illness HPI narrative: 86-year-old female who is here for evaluation of several days/week or more of lightheadedness. She has had vertigo in the past but this is not vertigo. She states she does feels funny in her head. It is somewhat reproducible with looking up and down. She does have a history of glaucoma. Is being followed by a a eye doctor for this. Does not have any vision changes. No sore throat. No sinus congestion. No ear pain. No chest pain. No shortness of breath. No abdominal pain. No nausea vomiting. She does have neuropathy in her lower extremities but this is not new for her. No trauma. Fevers. Related Data Home Medications Medication Instructions Recorded Confirmed [ASTAXANTHIN] 12 mg PO QDAY #0 10/01/15 07/10/21 Vitamin B-12 1 tab PO DAILY 08/01/18 07/10/21 alpha lipoic acid 200 mg capsule 200 mg PO DAILY cap 08/01/18 07/10/21 Preservision 1 tab PO DAILY 09/04/18 07/10/21 Turmeric/Curcumin 1 cap PO DAILY 09/04/18 07/10/21 Vitamin D3/Vitamin K2 1 tab PO DAILY 09/04/18 07/10/21 brimonidine 0.2 %-timolol 0.5 % 1 drop EYE-LEFT DAILY ml 09/04/18 07/10/21 eye drops (Combigan) latanoprost 0.005 % eye drops 1 drop EYE-LEFT BEDTIME ml 09/04/18 07/10/21 vitamin E 400 unit capsule 400 unit PO DAILY 09/04/18 07/10/21 Calcium 1000 IU 1 tab PO DAILY 03/23/19 07/10/21 atorvastatin 20 mg tablet 20 mg PO BID tab 05/05/20 07/10/21 cyclosporine 0.09 % eye drops in a 1 drp EYE-BOTH ea 05/05/20 07/10/21 dropperette pregabalin 100 mg capsule See Rx Instructions PO .COMPLEX 11/10/20 07/10/21 cap Previous Rx's Medication Instructions Recorded hyoscyamine sulfate 0.125 mg 0.125 mg SUBLINGUAL Q6HP PRN #60 09/26/20 disintegrating tablet tab lorazepam 1 mg tablet 1 mg PO BEDTIME #90 tab 05/06/21 metoprolol tartrate 25 mg tablet See Rx Instructions .ROUTE 05/29/21 .COMPLEX #90 tab Allergies Allergy/AdvReac Type Severity Reaction Status Date / Time sulfamethoxazole Allergy Intermediate sick to Verified 07/10/21 12:39 [From Bactrim] my stomach trimethoprim [From Bactrim] Allergy Intermediate sick to Verified 07/10/21 12:39 my stomach duloxetine [DULOXETINE] AdvReac Intermediate (CYMBALTA) Verified 07/10/21 12:39 DIARRHEA Review of Systems Review of Systems ROS Unobtainable: All systems reviewed & are unremarkable except as noted in HPI and below Patient History Medical History Chickenpox (Unknown) Dermatitis (Unknown) Fibromyalgia (Unknown) GERD (gastroesophageal reflux disease) (Unknown) Glaucoma (Unknown) Hearing loss Hx of actinic keratosis (09/2010) Hyperlipemia (Unknown) Hypertension (Unknown) IBS (irritable bowel syndrome) (Unknown) Low back pain (Unknown) Measles (Unknown) Mumps (Unknown) Obstructive sleep apnea (~2017) Orthostatic hypotension Osteoarthritis (Unknown) Peripheral neuropathy (Unknown) Seasonal allergic rhinitis Tinnitus Surgical History Hx of cataract surgery (Unknown) Family History Father Stroke Mother Stroke Brother Stroke Social History Smoking Status: Never smoker second hand exposure: Yes alcohol intake: former (just drank socially.) substance use type: does not use Smoking Status: Never smoker alcohol intake frequency: holidays/special occasions only Substance Use Type: does not use Exam Initial Vital Signs Initial Vital Signs: Vital Signs Temperature 97.9 F 07/10/21 12:30 Pulse Rate 63 07/10/21 12:30 Respiratory Rate 21 07/10/21 12:30 Blood Pressure 197/89 H 07/10/21 12:30 Pulse Oximetry 99 07/10/21 12:30 Const General: cooperative HENMT Head: normal to inspection and normocephalic Eyes General: Yes appearance normal, both eyes and all related structures Pupils: PERRL EOM: EOM intact bilaterally Other: In not to the pressure right eye 17. Interocular pressure left eye 20 Resp Effort & Inspection: normal respiratory effort Auscultation: clear to auscultation bilaterally Cardio Rate: regular rate Rhythm: regular rhythm Skin General: no rashes or lesions noted Neuro General: patient alert, patient awake, patient oriented x3 and moves all extremities Cranial Nerves: CN's II-XI intact bilaterally Cognition: normal cognition Speech: speech normal Motor: muscle tone normal throughout Extrem General: normal to inspection and capillary refill normal Psych Appearance: grossly normal and well kempt Scores GCS Elia coma scale eye opening: Spontaneous [place] coma scale verbal response: Orientated Elia coma scale motor response: Obey commands Elia coma scale total score: 15 Course Orders Ordered: ED Orders 07/10/21 12:38 XR chest 1V Stat EKG-12 Lead Stat 07/10/21 13:20 CT head/brain wo con Stat 07/10/21 13:35 Complete Blood Count AUTO DIFF Stat Partial Thromboplastin Time Stat Prothrombin Time INR Stat 07/10/21 14:04 Comprehensive Metabolic Panel Stat Lipase Stat Magnesium Stat Troponin & CK Cardiac Panel Stat 07/10/21 15:14 COVID19 -Nasal RAPID/Pre-Proc Stat Discontinued Medications Proparacaine HCl (Proparacaine 0.5% Ophth Nu) 1 drops EYE-RIGHT NOW ONE Stop: 07/10/21 13:20 Last Admin: 07/10/21 15:16 Dose: 1 drop Documented by: QUENTIN Vital Signs Vital signs: Vital Signs - 8 hr 07/10/21 12:30 07/10/21 12:33 07/10/21 12:34 Temperature 97.9 F Pulse Rate 63 67 63 Respiratory Rate 21 Blood Pressure 197/89 H 197/89 H Pulse Oximetry 99 98 99 07/10/21 12:38 07/10/21 13:00 07/10/21 13:01 Temperature Pulse Rate 61 61 61 Respiratory Rate 21 Blood Pressure 199/85 H 153/67 H Pulse Oximetry 100 100 98 07/10/21 13:31 07/10/21 14:00 07/10/21 14:16 Temperature Pulse Rate 61 58 L 67 Respiratory Rate 16 21 Blood Pressure 165/69 H Pulse Oximetry 100 98 99 07/10/21 14:30 07/10/21 15:00 07/10/21 15:01 Temperature Pulse Rate 57 L 59 L 58 L Respiratory Rate 13 14 Blood Pressure 160/74 H 149/65 H Pulse Oximetry 99 98 99 07/10/21 15:30 Temperature Pulse Rate 59 L Respiratory Rate 21 Blood Pressure 163/71 H Pulse Oximetry 98 Medical Decision Making Lab Data Lab results reviewed: Yes I reviewed the patient's lab results. Result diagrams: 07/10/21 13:35 07/10/21 14:04 Labs: Lab Results 07/10/21 07/10/21 07/10/21 Range/Units 13:35 13:35 14:04 WBC 7.9 (4.5-11.0) X10^3/uL RBC 4.15 (4.0-5.2) X10^6/uL Hgb 12.9 (12.0-16.0) g/dL Hct 38.7 (36-46) % MCV 93.3 (80-100) fL MCH 31.0 (26-34) PG MCHC 33.2 (30-36) % RDW 13.7 (11.6-14.8) % Plt Count 215 (150-400) X10^3/uL Neut % (Auto) 56.7 (50-75) % Lymph % (Auto) 28.4 (25-40) % Smyth % (Auto) 9.4 (3-14) % Eos % (Auto) 4.3 H (2-4) % Baso % (Auto) 1.2 (0-2) % Neut # (Auto) 4500 (4234-3515) /uL Lymph # (Auto) 2200 (9140-8958) /uL Smyth # (Auto) 700 (0-900) /uL Eos # (Auto) 300 (0-450) /uL Baso # (Auto) 100 (0-100) /uL PT 11.7 (10.1-12.7) SECONDS INR 1.1 (0.9-1.3) APTT 26 L (26.4-36.2) SECONDS Sodium 132 L (137-145) mmol/L Potassium 4.5 (3.4-5.1) mmol/L Chloride 99 (98-107) mmol/L Carbon Dioxide 29 (22-32) mmol/L BUN 16 (7-17) mg/dL Creatinine 0.70 (0.52-1.04) mg/dL Estimated GFR > 60 (>60) mL/min BUN/Creatinine Ratio 22.9 H (6-22) Glucose 90 (80-110) mg/dL Calcium 8.5 (8.4-10.2) mg/dL Magnesium 2.0 (1.6-2.3) mg/dL Total Bilirubin 0.4 (0.2-1.3) mg/dL AST 28 (14-36) IU/L ALT 21 (<35) IU/L Alkaline Phosphatase 56 (38-126) U/L Total Creatine Kinase 44 (30-135) U/L CK-MB (CK-2) TNP CK-MB (CK-2) Rel Index TNP Troponin I < 0.012 (0.01-0.034) ng/mL Total Protein 6.5 (6.3-8.2) g/dL Albumin 3.6 (3.5-5.0) g/dL Globulin 2.9 (1.7-4.1) g/dL Albumin/Globulin Ratio 1.2 (1.0-2.8) Lipase 161 (23-300) U/L SARS-CoV-2 (PCR) (Negative) 07/10/21 Range/Units 15:14 WBC (4.5-11.0) X10^3/uL RBC (4.0-5.2) X10^6/uL Hgb (12.0-16.0) g/dL Hct (36-46) % MCV (80-100) fL MCH (26-34) PG MCHC (30-36) % RDW (11.6-14.8) % Plt Count (150-400) X10^3/uL Neut % (Auto) (50-75) % Lymph % (Auto) (25-40) % Smyth % (Auto) (3-14) % Eos % (Auto) (2-4) % Baso % (Auto) (0-2) % Neut # (Auto) (6744-5239) /uL Lymph # (Auto) (3361-2852) /uL Smyth # (Auto) (0-900) /uL Eos # (Auto) (0-450) /uL Baso # (Auto) (0-100) /uL PT (10.1-12.7) SECONDS INR (0.9-1.3) APTT (26.4-36.2) SECONDS Sodium (137-145) mmol/L Potassium (3.4-5.1) mmol/L Chloride (98-107) mmol/L Carbon Dioxide (22-32) mmol/L BUN (7-17) mg/dL Creatinine (0.52-1.04) mg/dL Estimated GFR (>60) mL/min BUN/Creatinine Ratio (6-22) Glucose (80-110) mg/dL Calcium (8.4-10.2) mg/dL Magnesium (1.6-2.3) mg/dL Total Bilirubin (0.2-1.3) mg/dL AST (14-36) IU/L ALT (<35) IU/L Alkaline Phosphatase (38-126) U/L Total Creatine Kinase (30-135) U/L CK-MB (CK-2) CK-MB (CK-2) Rel Index Troponin I (0.01-0.034) ng/mL Total Protein (6.3-8.2) g/dL Albumin (3.5-5.0) g/dL Globulin (1.7-4.1) g/dL Albumin/Globulin Ratio (1.0-2.8) Lipase (23-300) U/L SARS-CoV-2 (PCR) Negative (Negative) Imaging Data Chest x-ray: Radiologist's Impression: [address] [address] XRay Report Signed Patient: Shannen Melton MR#: [id number] : 1935 Acct:[id number] Age/Sex: 86 / F Date of Service: 07/10/21 Loc: ED Accession Number: [id number] ?? Procedure: XR chest 1V Ordering Provider: Gelacio Barrow D.O. PROCEDURE:? XR CHEST 1V ? INDICATIONS:? chest pain ? TECHNIQUE:? One view of the chest was acquired.? ? COMPARISON:? [facility], , CHEST 2 VIEW, 11/29/2008, 8:11. ? FINDINGS:? ? Surgical changes and devices:? None.? ? Lungs and pleura:? Lungs are clear.? No pleural effusions or pneumothorax.? ? Mediastinum:? Mediastinal contours appear normal.? Heart size is normal.? ? Bones and chest wall:? No suspicious bony lesions.? Overlying soft tissues appear unremarkable.? ? IMPRESSION:? No acute cardiopulmonary pathology. ? ? Dictated by: Markus Ayala M.D. on 07/10/2021 at 13:29 ? ? Approved by: Markus Ayala M.D. on 07/10/2021 at 13:31?? CT scan - head: Radiologist's Impression: [place] [address] CT Scan Report Signed Patient: Shannen Melton MR#: [id number] : 1935 Acct:[id number] Age/Sex: 86 / F Date of Service: 07/10/21 Loc: ED Accession Number: [id number] ?? Procedure: CT head/brain wo con Ordering Provider: Gelacio Barrow D.O. PROCEDURE:? CT HEAD/BRAIN WO CON ? INDICATIONS:? dizziness ? TECHNIQUE:? Noncontrast 4.5 mm thick angled axial sections acquired from the foramen magnum to the vertex, with coronal and sagittal reformats.? For radiation dose reduction, the following was used:? automated exposure control, adjustment of mA and/or kV according to patient size.? ? COMPARISON:? None. ? FINDINGS:? Image quality:? Excellent.? ? CSF spaces:? Basal cisterns are patent.? No extra-axial fluid collections.? The ventricles are symmetric in size and shape.? ? Brain:? No intracranial bleeds or masses.? There is cerebral volume loss for age, with resultant ventricular and sulcal prominence.? There are periventricular and deep white matter chronic small vessel ischemic changes.? There is intracranial internal carotid artery atherosclerosis.? ? Skull and face:? Calvarium and visualized facial bones appear intact, without suspicious lesions.? ? Sinuses:? Visualized sinuses and mastoids are clear.? ? IMPRESSION:? No CT evidence of acute intracranial abnormalities.? Moderate atrophy and mild white matter chronic small vessel ischemic changes. ? ? Dictated by: Markus Ayala M.D. on 07/10/2021 at 13:39 ? ? Approved by: Markus Ayala M.D. on 07/10/2021 at 13:39?? ECG Data Attestation: I personally reviewed and interpreted this ECG as follows: Interpretation: Sinus bradycardia Ventricular rate of 59 First-degree AV block the pain arrival to 1 0 milliseconds Normal axis Normal QRS Normal QTC No ST T wave changes MDM Narrative Medical decision making narrative: Patient has a relatively benign exam today. No focal neuro deficits. She also has vague symptoms to include lightheadedness that has been going on for the past several days/week or longer. The only reason she is here today was because her family advised that she come in and be seen. She has no focal neuro deficits. GCS of 15. Cranial nerves are intact. Interocular pressures are unremarkable which she states they are normally lower than with a were today. This is in the setting of having no vision changes. Head CT unremarkable. Feel patient can be discharged home with follow-up with her primary doctor and also her eye provider on Tuesday. She will continue to take all of her medications as directed. She was given return precautions. She expressed understanding and agreement. Discharge Plan Departure Patient Disposition: Home Clinical Impression: Dizziness Instructions: DI for Dizziness-Nonvertigo Activity Restrictions/Additional Instructions: Continue to take all of your medications as directed. Contact your primary doctor for follow-up and also your environmental services supervisor on Tuesday for follow-up. Return to the emergency department for any new or worsening symptoms. Prescriptions: No Action [ASTAXANTHIN] 12 mg PO QDAY Qty: 0 0RF hyoscyamine sulfate 0.125 mg tablet,disintegrating 0.125 mg Sublingual Q6HP PRN (Reason: irritable bowel) Qty: 60 3RF lorazepam 1 mg tablet 1 mg PO BEDTIME Qty: 90 1RF metoprolol tartrate 25 mg tablet See Rx Instructions .ROUTE .COMPLEX Qty: 90 0RF Dose Instruction: Take 0.5 tablets (12.5 mg) by mouth 2 times daily Rx Instructions: Take 0.5 tablets (12.5 mg) by mouth 2 times daily Cequa 0.09 % dropperette 1 drp EYE-BOTH 0RF atorvastatin 20 mg tablet 20 mg PO BID 0RF pregabalin 100 mg capsule See Rx Instructions PO .COMPLEX 0RF Rx Instructions: Take 100mg by mouth in the morning and 200g at bedtime alpha lipoic acid 200 mg capsule 200 mg PO DAILY 0RF Vitamin B-12 1 tab PO DAILY 0RF Combigan 0.2-0.5 % drops 1 drop EYE-LEFT DAILY 0RF latanoprost 0.005 % drops 1 drop EYE-LEFT BEDTIME 0RF Vitamin D3/Vitamin K2 1 tab PO DAILY 0RF Preservision 1 tab PO DAILY 0RF Turmeric/Curcumin 1 cap PO DAILY 0RF vitamin E 400 unit capsule 400 unit PO DAILY 0RF Calcium 1000 IU 1 tab PO DAILY 0RF Referrals: Keegan Lerma, [Primary Care Provider] -
--- NOTE | 2021-07-10 13:20 | DI.CT.S_ITS ---
PROCEDURE: CT HEAD/BRAIN WO CON INDICATIONS: dizziness TECHNIQUE: Noncontrast 4.5 mm thick angled axial sections acquired from the foramen magnum to the vertex, with coronal and sagittal reformats. For radiation dose reduction, the following was used: automated exposure control, adjustment of mA and/or kV according to patient size. COMPARISON: None. FINDINGS: Image quality: Excellent. CSF spaces: Basal cisterns are patent. No extra-axial fluid collections. The ventricles are symmetric in size and shape. Brain: No intracranial bleeds or masses. There is cerebral volume loss for age, with resultant ventricular and sulcal prominence. There are periventricular and deep white matter chronic small vessel ischemic changes. There is intracranial internal carotid artery atherosclerosis. Skull and face: Calvarium and visualized facial bones appear intact, without suspicious lesions. Sinuses: Visualized sinuses and mastoids are clear. IMPRESSION: No CT evidence of acute intracranial abnormalities. Moderate atrophy and mild white matter chronic small vessel ischemic changes. Dictated by: Markus Ayala M.D. on 07/10/2021 at 13:39 Approved by: Markus Ayala M.D. on 07/10/2021 at 13:39
[2021-07-10 13:44] LABS: Add Manual Diff / Slide Review NO; Basophils Absolute Auto 100 /uL (0-100); Basophils Percent Auto 1.2 % (0-2); Eosinophils Absolute Auto 300 /uL (0-450); Eosinophils Percent Auto 4.3 % (2-4); Hematocrit 38.7 % (36-46); Hemoglobin 12.9 g/dL (12.0-16.0); Lymphocytes Absolute Auto 2200 /uL (1100-4500); Lymphocytes Percent Auto 28.4 % (25-40); Mean Corpuscular HGB Conc 33.2 % (30-36); Mean Corpuscular Volume 93.3 fL (80-100); Monocytes Absolute Auto 700 /uL (0-900); Monocytes Percent Auto 9.4 % (3-14); Neutrophils Absolute Auto 4500 /uL (1500-7000); Neutrophils Percent Auto 56.7 % (50-75); Platelet Count 215 X10^3/uL (150-400); Red Blood Cell Count 4.15 X10^6/uL (4.0-5.2); Red Cell Distribution Width 13.7 % (11.6-14.8); White Blood Cell Count 7.9 X10^3/uL (4.5-11.0)
[2021-07-10 13:51] LABS: INR 1.1 (0.9-1.3); Prothrombin Time 11.7 SECONDS (10.1-12.7)
[2021-07-10 13:53] LABS: PTT Partial Thromboplastin Tim 26 SECONDS (26.4-36.2)
[2021-07-10 14:23] LABS: Alanine Aminotransferase 21 IU/L (<35); Albumin 3.6 g/dL (3.5-5.0); Albumin Globulin Ratio 1.2 (1.0-2.8); Alkaline Phosphatase 56 U/L (38-126); Aspartate Aminotransferase 28 IU/L (14-36); BUN Creatinine Ratio 22.9 (6-22); Bilirubin Total 0.4 mg/dL (0.2-1.3); Blood Urea Nitrogen 16 mg/dL (7-17); Calcium 8.5 mg/dL (8.4-10.2); Carbon Dioxide 29 mmol/L (22-32); Chloride 99 mmol/L (98-107); Creatine Kinase 44 U/L (30-135); Estimated Glomerular Filt Rate > 60 mL/min (>60); Globulin 2.9 g/dL (1.7-4.1); Glucose 90 mg/dL (80-110); HEMOLYSIS < 15 (0-50); Lipase 161 U/L (23-300); Potassium 4.5 mmol/L (3.4-5.1); Sodium 132 mmol/L (137-145); Total Protein 6.5 g/dL (6.3-8.2)
[2021-07-10 14:34] LABS: Troponin I < 0.012 ng/mL (0.01-0.034)
[2021-07-10] MEDS: PROPARACAINE 0.5% OPHTH SOL 1 DROPS EYE-RIGHT (15:16)
[2021-07-10 15:39] LABS: COVID19 -Nasal RAPID Negative (Negative)
== END 2021-07-10 16:13 | disposition home or self-care (01) ==
PROVIDERS: Emergency Provider Emergency Medicine; Family Provider Physician Assistant; PCP Family Medicine
DX: R42 Dizziness and giddiness (principal); R07.9 Chest pain, unspecified; Z20.822 Contact with and (suspected) exposure to COVID-19
CPT/HCPCS: 36415; 70450; 71045; 80053; 82550; 83690; 83735; 84484; 85025; 85610; 85730; 87635; 93005; 99284; C9803

== ENCOUNTER → 2021-07-16 10:10 | Outpatient (CLI) | payer OTHER, SELFPAY ==
--- NOTE | 2021-07-16 10:11 | DI.RAD.S_ITS ---
PROCEDURE: XR CERVICAL SPINE 2V OR 3V INDICATIONS: dizziness, neck pain TECHNIQUE: 3 view(s) of the cervical spine were acquired. COMPARISON: None. FINDINGS: Bones: No fractures or dislocations to the T1 level. The lateral masses of C1 appear intact on the odontoid view. No suspicious bony lesions. Mild grade 1 anterior spondylolisthesis noted at C3-4, C4-5 and C5-6, related to hypertrophic facet joints and associated disc space narrowing. Craniovertebral relationships normal. Soft tissues: No prevertebral soft tissue swelling. Atherosclerotic vascular calcification noted in the aortic arch. IMPRESSION: Multilevel degenerative disc disease and arthropathy noted lower cervical spine. Approved by: Cholo Donaldson M.D. on 07/16/2021 at 10:06
== END ==
PROVIDERS: Family Provider Physician Assistant; PCP Family Medicine; Referring Provider Family Medicine; Visit Provider Family Medicine
DX: M50.31 Other cervical disc degeneration, high cervical region (principal); M47.812 Spondylosis without myelopathy or radiculopathy, cervical region; R42 Dizziness and giddiness
CPT/HCPCS: 72040

== ENCOUNTER → 2021-08-06 10:36 | Outpatient (CLI) | payer OTHER, SELFPAY ==
--- NOTE | 2021-08-06 10:39 | DI.US.S_ITS ---
PROCEDURE: US CAROTID DOPPLER BI INDICATIONS: dizziness TECHNIQUE: Color and pulse Doppler interrogation was performed of both carotid systems, with image documentation and velocity measurements. COMPARISON: [facility], CT, CT HEAD/BRAIN WO CON, 07/10/2021, 13:24. [facility] Ultrasound, US, US CAROTID BILATERAL, 08/21/2019, 11:31. FINDINGS: Stenosis calculations are based on SRU (Society of Radiologists in Ultrasound) criteria. The flow velocities and the arterial waveforms are normal within both carotid arterial systems. Atherosclerotic plaque is seen on the right. The estimated degree of internal carotid artery stenosis is less than 50%. Antegrade flow is confirmed within both vertebral arteries. IMPRESSION: No hemodynamically significant stenosis is seen. Compared to 2019, the velocity of the left internal artery now measures within normal limits. Dictated by: Isaiah Barker M.D. on 08/06/2021 at 11:55 Approved by: Isaiah Barker M.D. on 08/06/2021 at 11:56
[2021-08-06 14:27] LABS: Thyroid Stimulating Hormone 1.91 uIU/mL (0.47-4.68)
== END ==
PROVIDERS: Family Provider Physician Assistant; PCP Internal Medicine; Referring Provider Internal Medicine Cardiovascular Disease; Visit Provider Internal Medicine
DX: I10 Essential (primary) hypertension (principal); R42 Dizziness and giddiness
CPT/HCPCS: 36415; 84443; 93880

== ENCOUNTER → 2021-08-26 11:27 | Outpatient (CLI) | payer OTHER, SELFPAY ==
[2021-08-26 13:29] LABS: Alanine Aminotransferase 20 IU/L (<35); Albumin 3.9 g/dL (3.5-5.0); Albumin Globulin Ratio 1.5 (1.0-2.8); Alkaline Phosphatase 54 U/L (38-126); Aspartate Aminotransferase 32 IU/L (14-36); BUN Creatinine Ratio 19.7 (6-22); Bilirubin Total 0.5 mg/dL (0.2-1.3); Blood Urea Nitrogen 13 mg/dL (7-17); Calcium 8.5 mg/dL (8.4-10.2); Carbon Dioxide 27 mmol/L (22-32); Chloride 98 mmol/L (98-107); Estimated Glomerular Filt Rate > 60 mL/min (>60); Globulin 2.6 g/dL (1.7-4.1); Glucose 73 mg/dL (80-110); HEMOLYSIS 33 (0-50); Magnesium 1.9 mg/dL (1.6-2.3); Potassium 4.5 mmol/L (3.4-5.1); Sodium 131 mmol/L (137-145); Total Protein 6.5 g/dL (6.3-8.2)
[2021-08-26 13:56] LABS: Thyroid Stimulating Hormone 2.56 uIU/mL (0.47-4.68)
== END ==
PROVIDERS: Family Provider Internal Medicine; PCP Internal Medicine; Referring Provider Internal Medicine Cardiovascular Disease; Visit Provider Internal Medicine Cardiovascular Disease
DX: I47.2 Ventricular tachycardia (principal); R00.2 Palpitations
CPT/HCPCS: 36415; 80053; 83735; 84443

== ENCOUNTER → 2021-09-04 12:50 | Outpatient (CLI) | payer OTHER, SELFPAY ==
[2021-09-04 14:53] LABS: BUN Creatinine Ratio 28.8 (6-22); Blood Urea Nitrogen 21 mg/dL (7-17); Calcium 8.5 mg/dL (8.4-10.2); Carbon Dioxide 27 mmol/L (22-32); Chloride 101 mmol/L (98-107); Estimated Glomerular Filt Rate > 60 mL/min (>60); Glucose 85 mg/dL (80-110); HEMOLYSIS < 15 (0-50); Potassium 4.5 mmol/L (3.4-5.1); Sodium 133 mmol/L (137-145)
[2021-09-07 16:40] LABS: Osmolality, Serum 281 mOsmol/kg (280-301)
== END ==
PROVIDERS: Family Provider Internal Medicine; PCP Internal Medicine; Referring Provider Internal Medicine Cardiovascular Disease; Visit Provider Internal Medicine Cardiovascular Disease
DX: I10 Essential (primary) hypertension (principal); R42 Dizziness and giddiness
CPT/HCPCS: 36415; 80048; 83930

== ENCOUNTER 2021-09-09 13:45 | Outpatient (RCR) | payer OTHER, SELFPAY ==
--- NOTE | 2021-08-26 16:00 | PT.OIE ---
Current Diagnoses Dizziness and giddiness (08/26/21) Past Medical History (Last Updated 08/12/21 @ 13:39 by Zain Tejeda MD) Chickenpox (Unknown) Degenerative disc disease, cervical Dermatitis (Unknown) Dizziness Fibromyalgia (Unknown) GERD (gastroesophageal reflux disease) (Unknown) Glaucoma (Unknown) Hx of actinic keratosis (09/2010) Hyperlipemia (Unknown) Hypertension (Unknown) IBS (irritable bowel syndrome) (Unknown) Insomnia Left carotid stenosis Low back pain (Unknown) Measles (Unknown) Mixed hyperlipidemia Mumps (Unknown) Obstructive sleep apnea (~2017) Osteoarthritis (Unknown) Peripheral neuropathy (Unknown) Premature ventricular contraction Seasonal allergic rhinitis Tinnitus Past Surgical History (Last Reviewed 07/26/21 @ 09:15 by Keegan Lerma DO) Hx of cataract surgery (Unknown) Visit Care Team Role Provider Type Zain Tejeda MD Family Provider Physician Primary Care Provider Specialty: Internal Medicine Address: [address] [place] [address] Email: [email or web address] Parrish Rhodes MD Attending Provider Physician Referring Provider Specialty: Ear, Nose, Throat Address: [address] [place] [address] Email: [email or web address] Physical Therapy Initial Evaluation PT-OP-A Visit Information Start: 08/25/21 15:51 Freq: Status: Active Protocol: Document 08/26/21 13:45 AMB (Rec: 08/30/21 10:51 AMB [id number]) Out-Patient Physical Therapy Visit Information Visit Information Visit Type Initial Evaluation Visit Start Time 13:45 Visit Stop Time 14:30 Total Visit Minutes 45 Visit Number 1 PT-OP-B Current Condition Start: 08/25/21 15:51 Freq: Status: Active Protocol: Document 08/26/21 13:54 AMB (Rec: 08/26/21 14:38 AMB [id number]) Current Condition History of Current Condition Onset Date A couple months Current Complaints Dizziness History of Current Condition Movement, not as much spinning . Rolling to the left is worse. Notices it most with looking up and bending forward . Movement is 10-20 seconds, is associated with nausea. Denies double vision/ hearing changes/ear pressure. Denies falls. Treatment Goals Patient/Caregiver Goals Test for vertigo Prior Functional Status Baseline Function- ADL's Independent Baseline Function- Mobility Independent Personal Factors Other Personal Factors That May Effect Glaucoma, fibromyalgia, neck Therapy/Recovery pain PT-OP-C Subjective Start: 08/25/21 15:51 Freq: Status: Active Protocol: Document 08/26/21 13:45 AMB (Rec: 08/30/21 10:51 AMB [id number]) Patient Questionnaires Dizziness Handicap Inventory DHI Score 94 DHI Functional Impairment 80 to 99% Impaired (Score 80- 99) PT-OP-O Vestibular Start: 08/25/21 15:51 Freq: Status: Active Protocol: Document 08/26/21 13:45 AMB (Rec: 08/30/21 10:51 AMB [id number]) Vestibular Assessment Visual Testing Smooth Pursuits Horizontal WFL Smooth Pursuits Vertical WFL Saccades Horizontal WFL Saccades Vertical WFL Positional Testing [place]-Hallpike Positive Left Comments Vestibular Comments torsional nystagmus, symptomatic, 10 seconds in first position, again in 3rd position briefly, pt tolerated 2 Epleys well, did have some dizziness upon sitting up with second. PT-OP-T Assessment and Plan Start: 08/25/21 15:51 Freq: Status: Active Protocol: Document 08/26/21 13:45 AMB (Rec: 08/30/21 10:51 AMB [id number]) Physical Therapy Assessment Rehab Potential Rehabilitation Potential Excellent Evaluation Complexity Number of Personal Factors/Comorbidities 1-2 Number of Body Systems Impaired 1-2 Clinical Presentation at Evaluation Stable Impairments Impairments Balance,Gait,Vestibular Goals Two Impairment BPPV Short Term Goal (STG) Shannen willhave a negative Callie . STG Duration 4 weeks One Impairment Dizziness Short Term Goal (STG) Shannen will look up and down without dizziness. STG Duration 4 weeks Switch Repairer Goal (LTG) Shannen will roll over in bed without dizziness. LTG Duration 6 weeks Assessment Summary Assessment Shannen attends PT with her daughter. She reports movement lasting a few seconds, with bending forward and looking up. When asked she does report dizziness with rolling over in bed, specifically not spinning, but is associated with nausea. Has had BPPV once in the distant past. Has had a carotid doppler and a brain MRI with contrast per her daughter which were normal. 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 Will benefit from further appointments to recheck that Callie was fully successful, recheck other canals, and then perform balance assessment given the months that pt has been dizzy and her age. Physical Therapy Plan Frequency and Duration Frequency of Treatment 2x/Week Duration of Treatment 6 weeks Plan of Care Start Date 08/26/21 Plan of Care End Date 10/07/21 Therapeutic Interventions Therapeutic Interventions Balance Training,Canalithic Repositioning,Gait Training, Neuromuscular Re-education, Therapeutic Activities, Therapeutic Exercises, Vestibular Rehabilitation Next Visit Focus/Plan Next Note Type Treatment Note Next Visit Plan Recheck L erwin-hallpike
--- NOTE | 2021-08-26 16:00 | PT.OPPOC ---
Physical, Occupational & Speech Therapy At [facility] Current Diagnoses Dizziness and giddiness (08/26/21) Visit Care Team Role Provider Type Zain Tejeda MD Family Provider Physician Primary Care Provider Specialty: Internal Medicine Address: [address] [place] [address], [address] Email: [email or web address] Parrish Rhodes MD Attending Provider Physician Referring Provider Specialty: Ear, Nose, Throat Address: [address] [place] [address], [id number] Email: [email or web address] Plan Of Care PT-OP-T Assessment and Plan Start: 08/25/21 15:51 Freq: Status: Active Protocol: Document 08/26/21 13:45 AMB (Rec: 08/30/21 10:51 AMB [id number]) Physical Therapy Assessment Rehab Potential Rehabilitation Potential Excellent Evaluation Complexity Number of Personal Factors/Comorbidities 1-2 Number of Body Systems Impaired 1-2 Clinical Presentation at Evaluation Stable Impairments Impairments Balance,Gait,Vestibular Goals Two Impairment BPPV Short Term Goal (STG) Shannen willhave a negative Callie . STG Duration 4 weeks One Impairment Dizziness Short Term Goal (STG) Shannen will look up and down without dizziness. STG Duration 4 weeks Sql Server Developer Goal (LTG) Shannen will roll over in bed without dizziness. LTG Duration 6 weeks Assessment Summary Assessment Shannen attends PT with her daughter. She reports movement lasting a few seconds, with bending forward and looking up. When asked she does report dizziness with rolling over in bed, specifically not spinning, but is associated with nausea. Has had BPPV once in the distant past. Has had a carotid doppler and a brain MRI with contrast per her daughter which were normal. 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 Will benefit from further appointments to recheck that Callie was fully successful, recheck other canals, and then perform balance assessment given the months that pt has been dizzy and her age. Physical Therapy Plan Frequency and Duration Frequency of Treatment 2x/Week Duration of Treatment 6 weeks Plan of Care Start Date 08/26/21 Plan of Care End Date 10/07/21 Therapeutic Interventions Therapeutic Interventions Balance Training,Canalithic Repositioning,Gait Training, Neuromuscular Re-education, Therapeutic Activities, Therapeutic Exercises, Vestibular Rehabilitation Next Visit Focus/Plan Next Note Type Treatment Note Next Visit Plan Rosina rust Plan of Care Dates Plan of Care Start Date 08/26/21 Plan of Care End Date 10/07/21 Electronically Signed by: Kim Matta, PT 08/30/21 0417 If you are in agreement with this Plan of Care, please return a signed and dated copy. I have reviewed this Plan of Care and certify that the skilled therapy services above are required to meet the patient?s needs. Physician Signature Date Printed Name and Credentials Clinical Instructor Signature Printed Name and Credentials
--- NOTE | 2021-09-04 14:06 | PT.OTN ---
Current Diagnoses Dizziness and giddiness (09/04/21) Physical Therapy Treatment Note PT-OP-A Visit Information Start: 08/25/21 15:51 Freq: Status: Active Protocol: Document 09/04/21 13:18 AMB (Rec: 09/04/21 14:06 AMB [id number]) Out-Patient Physical Therapy Visit Information Visit Information Visit Type Treatment Note Visit Start Time 13:15 Visit Stop Time 13:45 Total Visit Minutes 30 Visit Number 2 PT-OP-B Current Condition Start: 08/25/21 15:51 Freq: Status: Active Protocol: Document 08/26/21 13:54 AMB (Rec: 08/26/21 14:38 AMB [id number]) Current Condition History of Current Condition Onset Date A couple months Current Complaints Dizziness History of Current Condition Movement, not as much spinning . Rolling to the left is worse. Notices it most with looking up and bending forward . Movement is 10-20 seconds, is associated with nausea. Denies double vision/ hearing changes/ear pressure. Denies falls. Treatment Goals Patient/Caregiver Goals Test for vertigo Prior Functional Status Baseline Function- ADL's Independent Baseline Function- Mobility Independent Personal Factors Other Personal Factors That May Effect Glaucoma, fibromyalgia, neck Therapy/Recovery pain PT-OP-C Subjective Start: 08/25/21 15:51 Freq: Status: Active Protocol: Document 09/04/21 13:18 AMB (Rec: 09/04/21 14:06 AMB [id number]) OP-PT Subjective Patient Comments Patient Comments Pt states she is 95% better. PT-OP-O Vestibular Start: 08/25/21 15:51 Freq: Status: Active Protocol: Document 08/26/21 13:45 AMB (Rec: 08/30/21 10:51 AMB [id number]) Vestibular Assessment Visual Testing Smooth Pursuits Horizontal WFL Smooth Pursuits Vertical WFL Saccades Horizontal WFL Saccades Vertical WFL Positional Testing [place]-Hallpike Positive Left Comments Vestibular Comments torsional nystagmus, symptomatic, 10 seconds in first position, again in 3rd position briefly, pt tolerated 2 Epleys well, did have some dizziness upon sitting up with second. PT-OP-Q Treatments Start: 08/25/21 15:51 Freq: Status: Active Protocol: Document 09/04/21 13:18 AMB (Rec: 09/04/21 14:06 AMB [id number]) Canalithic Repositioning BPPV Treatment Callie Affected Canal(s) L Callie Reps 2 Comments Torsional upbeating nystagmus in position 1 and 3 of first repetition, no dizziness or nystagmus with second PT-OP-T Assessment and Plan Start: 08/25/21 15:51 Freq: Status: Active Protocol: Document 09/04/21 13:18 AMB (Rec: 09/04/21 14:06 AMB [id number]) Physical Therapy Assessment Goals Two Impairment BPPV Short Term Goal (STG) Shannen willhave a negative Callie . STG Duration 4 weeks One Impairment Dizziness Short Term Goal (STG) Dicazam will look up and down without dizziness. STG Duration 4 weeks Half-Way Goal (LTG) Dicazam will roll over in bed without dizziness. LTG Duration 6 weeks Assessment Summary Assessment Shannen reports significant improvement in symptoms. She did have dizziness with first Callie, but significantly less severe than at eval, no nausea . Repeated post manuever precautions. Offered balance testing, but pt is aware she has nystagmus and vision deficit, is careful, uses SPC, no fall history. Would like to see her for one more visit to make sure sx completely cleared and no nystagmus with Callie. Physical Therapy Plan Next Visit Focus/Plan Next Note Type Treatment Note Next Visit Plan Recheck L [email or web address]
--- NOTE | 2021-09-09 14:07 | PT.OTN ---
Current Diagnoses Dizziness and giddiness (09/09/21) Physical Therapy Treatment Note PT-OP-A Visit Information Start: 08/25/21 15:51 Freq: Status: Active Protocol: Document 09/09/21 13:45 DCW (Rec: 09/09/21 14:07 DCW [id number]) Out-Patient Physical Therapy Visit Information Visit Information Visit Type Discharge Summary Visit Start Time 13:45 Visit Stop Time 14:03 Total Visit Minutes 18 Visit Number 3 PT-OP-B Current Condition Start: 08/25/21 15:51 Freq: Status: Active Protocol: Document 08/26/21 13:54 AMB (Rec: 08/26/21 14:38 AMB [id number]) Current Condition History of Current Condition Onset Date A couple months Current Complaints Dizziness History of Current Condition Movement, not as much spinning . Rolling to the left is worse. Notices it most with looking up and bending forward . Movement is 10-20 seconds, is associated with nausea. Denies double vision/ hearing changes/ear pressure. Denies falls. Treatment Goals Patient/Caregiver Goals Test for vertigo Prior Functional Status Baseline Function- ADL's Independent Baseline Function- Mobility Independent Personal Factors Other Personal Factors That May Effect Glaucoma, fibromyalgia, neck Therapy/Recovery pain PT-OP-C Subjective Start: 08/25/21 15:51 Freq: Status: Active Protocol: Document 09/09/21 13:45 DCW (Rec: 09/09/21 14:07 DCW [id number]) OP-PT Subjective Patient Comments Patient Comments I got a little tipsy feeling a few days ago when I bent over then stood up fast, but other than that I'm doing well . PT-OP-O Vestibular Start: 08/25/21 15:51 Freq: Status: Active Protocol: Document 08/26/21 13:45 AMB (Rec: 08/30/21 10:51 AMB [id number]) Vestibular Assessment Visual Testing Smooth Pursuits Horizontal WFL Smooth Pursuits Vertical WFL Saccades Horizontal WFL Saccades Vertical WFL Positional Testing [place]-Hallpike Positive Left Comments Vestibular Comments torsional nystagmus, symptomatic, 10 seconds in first position, again in 3rd position briefly, pt tolerated 2 Epleys well, did have some dizziness upon sitting up with second. PT-OP-Q Treatments Start: 08/25/21 15:51 Freq: Status: Active Protocol: Document 09/04/21 13:18 AMB (Rec: 09/04/21 14:06 AMB [id number]) Canalithic Repositioning BPPV Treatment Callie Affected Canal(s) L Callie Reps 2 Comments Torsional upbeating nystagmus in position 1 and 3 of first repetition, no dizziness or nystagmus with second PT-OP-T Assessment and Plan Start: 08/25/21 15:51 Freq: Status: Active Protocol: Document 09/09/21 13:45 DCW (Rec: 09/09/21 14:07 DCW [id number]) Physical Therapy Assessment Goals Two Impairment BPPV Short Term Goal (STG) Dica willhave a negative Callie . STG Duration Met One Impairment Dizziness Short Term Goal (STG) Dica will look up and down without dizziness. STG Duration Met Nursing Home Goal (LTG) Dica will roll over in bed without dizziness. LTG Duration Met Assessment Summary Assessment Positional testing negative today, pt not reporting any symptoms with positional changes. Discussed possibility of recurrence. Appropriate for discharge at this time. Physical Therapy Plan Frequency and Duration Frequency of Treatment 2x/Week Duration of Treatment 6 weeks Plan of Care Start Date 08/26/21 Plan of Care End Date 10/07/21 Therapeutic Interventions Therapeutic Interventions Balance Training,Canalithic Repositioning,Gait Training, Neuromuscular Re-education, Therapeutic Activities, Therapeutic Exercises, Vestibular Rehabilitation Next Visit Focus/Plan Next Note Type Treatment Note Next Visit Plan Recheck L [place]-hallpike
== END 2021-09-18 10:12 ==
LOC: PHYS 13:45
PROVIDERS: Family Provider Internal Medicine; PCP Internal Medicine; Referring Provider Otolaryngology; Visit Provider Otolaryngology
DX: R42 Dizziness and giddiness (principal)
CPT/HCPCS: 95992; 97140; 97161

== ENCOUNTER → 2021-11-26 14:13 | Outpatient (CLI) | payer OTHER, SELFPAY ==
--- NOTE | 2021-11-26 | DI.MG.S_ITS ---
BILATERAL DIGITAL SCREENING MAMMOGRAM 3D/2D WITH CAD: 11/26/2021 CLINICAL: Routine screening. Family history of breast cancer. Comparison is made to exams dated: 09/25/2019 mammogram, 02/04/2016 mammogram, and 09/06/2017 mammogram - [facility]. Both breasts are heterogeneously dense, which may obscure small masses (category c / 51-75% glandular tissue). Current study was also evaluated with a Computer Aided Detection (CAD) system. No significant masses, calcifications, or other findings are seen in either breast. There has been no significant interval change. IMPRESSION: NEGATIVE There is no mammographic evidence of malignancy. A 1 year screening mammogram is recommended. Based on the Tyrer Cuzick model (a risk assessment model) the patient's lifetime risk is 0.6% and her 10 year risk is 0.0%. According to the ACR, ACS, and NCCN guidelines, an annual breast MRI exam along with mammogram is recommended if the patient's lifetime risk is 20% or greater. This exam was interpreted at Station ID: [id number]. NOTE: For mammograms, a report in lay terms will be sent to the patient. Approximately 15% of breast malignancies will not be visualized mammographically. In the management of a palpable breast mass, a negative mammogram must not discourage biopsy of a clinically suspicious lesion. Electronically Signed By: Binh mccall/heaven:11/26/2021 14:49:35 letter sent: Normal Exam ACR BI-RADS Category 1: Negative [id number]
== END ==
PROVIDERS: Family Provider Internal Medicine; PCP Internal Medicine; Referring Provider Internal Medicine; Visit Provider Internal Medicine
DX: Z12.31 Encounter for screening mammogram for malignant neoplasm of breast (principal); Z80.3 Family history of malignant neoplasm of breast
CPT/HCPCS: 77063; 77067

== ENCOUNTER → 2022-05-09 12:44 | Outpatient (CLI) | payer OTHER, SELFPAY | PROVIDERS: Family Provider Internal Medicine; PCP Internal Medicine; Visit Provider Physician Assistant | DX: R30.0 Dysuria (principal) | CPT/HCPCS: 87077; 87086; 87186 ==

== ENCOUNTER → 2022-06-18 11:08 | Outpatient (CLI) | payer OTHER, SELFPAY ==
[2022-06-18 12:53] LABS: Hemoglobin 12.6 g/dL (12.0-16.0); Mean Corpuscular Hemoglobin 31.6 PG (26-34); Mean Corpuscular Volume 93.1 fL (80-100); Platelet Count 190 X10^3/uL (150-400); Red Blood Cell Count 3.98 X10^6/uL (4.0-5.2); Red Cell Distribution Width 13.3 % (11.6-14.8); White Blood Cell Count 8.6 X10^3/uL (4.5-11.0)
[2022-06-18 13:30] LABS: Alanine Aminotransferase 23 IU/L (<35); Albumin 3.8 g/dL (3.5-5.0); Albumin Globulin Ratio 1.5 (1.0-2.8); Alkaline Phosphatase 54 U/L (38-126); Aspartate Aminotransferase 31 IU/L (14-36); Bilirubin Total 0.5 mg/dL (0.2-1.3); Blood Urea Nitrogen 17 mg/dL (7-17); Carbon Dioxide 33 mmol/L (22-32); Chloride 97 mmol/L (98-107); Cholesterol 124 mg/dL (140-199); Estimated Glomerular Filt Rate > 60 mL/min (>60); Globulin 2.6 g/dL (1.7-4.1); Glucose 82 mg/dL (80-110); HDL Cholesterol 74 mg/dL (40-60); HEMOLYSIS < 15 (0-50); LDL Cholesterol Calculated 36 mg/dL (<100); Potassium 4.6 mmol/L (3.4-5.1); Sodium 133 mmol/L (137-145); Total Protein 6.4 g/dL (6.3-8.2); Triglycerides 72 mg/dL (35-150)
[2022-06-18 13:56] LABS: TSH w/ Reflex to FT4 2.03 uIU/mL (0.47-4.68)
== END ==
PROVIDERS: Family Provider Internal Medicine; PCP Internal Medicine; Referring Provider Internal Medicine; Visit Provider Internal Medicine
DX: E78.2 Mixed hyperlipidemia (principal); I65.22 Occlusion and stenosis of left carotid artery
CPT/HCPCS: 36415; 80053; 80061; 84443; 85027

== ENCOUNTER → 2022-10-25 11:32 | Outpatient (CLI) | payer OTHER, SELFPAY | PROVIDERS: Family Provider Internal Medicine; PCP Internal Medicine; Visit Provider Physician Assistant | DX: R30.0 Dysuria (principal) | CPT/HCPCS: 87086 ==

== ENCOUNTER → 2022-11-30 11:35 | Outpatient (CLI) | payer OTHER, SELFPAY ==
[2022-11-30 11:58] LABS: Appearance Urine UA CLEAR; Bilirubin Urine UA NEGATIVE (NEGATIVE); Color Urine UA YELLOW; Glucose Urine UA NEGATIVE (Negative); Ketones Urine UA NEGATIVE (NEGATIVE); Leukocyte Esterase Urine UA NEGATIVE (NEGATIVE); Nitrite Urine UA NEGATIVE (Negative); Occult Blood Urine UA NEGATIVE (Negative); Protein Urine UA NEGATIVE (Negative); Specific Gravity Urine UA <=1.005 (1.000-1.035); Urobilinogen Urine UA 0.2 E.U./dL (0.2)
[2022-11-30 11:59] LABS: pH Urine UA 5.5 (4.5-8.0)
[2022-11-30 12:07] LABS: Bacteria Urine None Seen; RBC Urine None Seen (0-5/HPF); Squamous Epithelial Cell Urine 0-1 /HPF (0-5/HPF); WBC Urine None Seen (0-5/HPF)
[2022-11-30 12:08] LABS: Culture Indicated Urine Cult Not Indicated
== END ==
PROVIDERS: Family Provider Internal Medicine; PCP Internal Medicine; Referring Provider Internal Medicine; Visit Provider Internal Medicine
DX: N30.90 Cystitis, unspecified without hematuria (principal)
CPT/HCPCS: 81001

== ENCOUNTER → 2022-12-29 15:27 | Outpatient (CLI) | payer OTHER, SELFPAY | PROVIDERS: Family Provider Internal Medicine; PCP Internal Medicine; Visit Provider Physician Assistant | DX: R30.0 Dysuria (principal) | CPT/HCPCS: 87077; 87086; 87186 ==

== ENCOUNTER → 2023-04-21 15:07 | Outpatient (CLI) | payer OTHER, SELFPAY ==
[2023-04-21 16:01] LABS: Hematocrit 39.5 % (36-46); Hemoglobin 13.3 g/dL (12.0-16.0); Mean Corpuscular HGB Conc 33.6 % (30-36); Mean Corpuscular Hemoglobin 31.7 PG (26-34); Mean Corpuscular Volume 94.3 fL (80-100); Platelet Count 214 X10^3/uL (150-400); Red Blood Cell Count 4.19 X10^6/uL (4.0-5.2); Red Cell Distribution Width 13.3 % (11.6-14.8); White Blood Cell Count 7.4 X10^3/uL (4.5-11.0)
[2023-04-21 17:01] LABS: Aspartate Aminotransferase 41 IU/L (14-36); BUN Creatinine Ratio 23.2 (6-22); Blood Urea Nitrogen 16 mg/dL (7-17); Calcium 9.3 mg/dL (8.4-10.2); Carbon Dioxide 28 mmol/L (22-32); Chloride 99 mmol/L (98-107); Cholesterol 138 mg/dL (140-199); Estimated Glomerular Filt Rate > 60 mL/min (>60); Glucose 84 mg/dL (80-110); HDL Cholesterol 70 mg/dL (40-60); HEMOLYSIS < 15 (0-50); LDL Cholesterol Calculated 53 mg/dL (<100); Sodium 136 mmol/L (137-145); Triglycerides 77 mg/dL (35-150)
== END ==
PROVIDERS: Family Provider Internal Medicine; PCP Internal Medicine; Referring Provider Internal Medicine; Visit Provider Internal Medicine
DX: E78.2 Mixed hyperlipidemia (principal); N39.0 Urinary tract infection, site not specified
CPT/HCPCS: 36415; 80048; 80061; 84450; 85027

== ENCOUNTER → 2023-07-15 09:00 | Outpatient (CLI) | payer OTHER, SELFPAY ==
--- NOTE | 2023-07-15 09:01 | DI.ECHO.S_ITS ---
[facility]+ [facility] : : [address] : [place] : : [id number] : : Phone: [phone] Echocardiogram Report + + :Name: RUBY CASTRO Study Date: 07/15/2023 Height: 63 in : :[facility] ReadingLocation: Weight: 135 lb : : Gender: Female BSA: 1.6 m2 : :: 1935 Age: 88 yrs BP: 166/94 mmHg: :Reason For Study: THORACIC AORTIC ECTASIA : :Ordering Physician: ANCA, : :MELYSSA Performed By: Taz Marquez : :Referring: MELYSSA MARCH : + + Interpretation Summary The left ventricle is normal in size and wall thickness. The left ventricular ejection fraction is normal. The ejection fraction is estimated to be 55-60%. There has been no significant change in LVEF since the previous exam. The right ventricle is normal size. The right ventricular systolic function is normal. There is mild tricuspid regurgitation. Compared to the prior echo exam, there has been a decrease in TR severity. The right ventricular systolic pressure is estimated to be at least 38 mmHg based on an estimated right atrial pressure of 3 mm Hg. Previously 32 mmHg. The ascending aorta is moderately enlarged. 4.1 cm in diameter. This is unchanged compared to the previous study. There is mild luminal irregularity and echogenicity in the abdominal aorta, suggestive of aortic atherosclerotic disease. No significant change from the previous study. BP: 166/94 mmHg Procedure: A two-dimensional transthoracic echocardiogram with color flow and Doppler was performed. The study quality was technically adequate. Comparison is made with the echocardiogram of 05/15/2021. The patient was in normal sinus rhythm during the exam. The heart rate ranged between 58-66 bpm during the study. Left Ventricle: The left ventricle is normal in size and wall thickness. A false chord is noted (normal variant). The ejection fraction is estimated to be 55-60%. The left ventricular ejection fraction is normal. There has been no significant change since the previous exam. There are no focal wall motion abnormalities. Diastolic parameters suggest a relaxation abnormality of the left ventricle, consistent with probable normal filling pressures. Right Ventricle: The right ventricle is normal size. The right ventricular systolic function is normal. Atria: The left atrial size is normal. There has been no significant change since the previous study. The right atrium is borderline dilated. The interatrial septum grossly appears intact with no obvious evidence for an atrial septal defect. Mitral Valve: There is mild mitral annular calcification. There is no mitral valve stenosis. There is trace mitral regurgitation. Aortic Valve: The aortic valve is trileaflet. There is mild aortic valve sclerosis. There is no aortic valve stenosis. No aortic regurgitation is present. Tricuspid Valve: The tricuspid valve is normal. There is no tricuspid stenosis. There is mild tricuspid regurgitation. The right ventricular systolic pressure is estimated to be at least 38 mmHg based on an estimated right atrial pressure of 3 mm Hg. Compared to the prior echo exam, there has been a decrease in TR severity. Pulmonic Valve: The pulmonic valve is not well visualized. There is no pulmonic valvular stenosis. There is no pulmonic valvular regurgitation. Great Vessels: The aortic root is normal size. The ascending aorta is moderately enlarged. This is unchanged compared to the previous study. There is mild luminal irregularity and echogenicity in the abdominal aorta, suggestive of aortic atherosclerotic disease. The IVC is of normal diameter and collapses greater than 50% with a sniff. This suggests a low right atrial pressure of 3 mm Hg. Pericardium/ Pleura There is no pericardial effusion. There is no pleural effusion. MMode/2D Measurements & Calculations LVIDd: 4.4 cm LVOT diam: 1.9 cm LVIDs: 2.7 cm Ao root diam: 3.2 cm FS: 37.8 % asc Aorta Diam: 4.1 cm IVSd: 0.76 cm Ao Arch Diam (Prox Trans): 2.3 cm LVPWd: 0.87 cm LV hernandes. diameter/BSA (cm/m^2): 2.7 LV sys. diameter/BSA (cm/m^2): 1.7 LA A2 area: 13.7 cm2 RA long axis: 4.8 cm LA A4 area: 14.2 cm2 RA area: 15.2 cm2 LA length (vol): 4.9 cm RA vol: 40.6 ml LA vol: 33.5 ml RA : 24.8 ml/m2 LA vol index: 20.5 ml/m2 IVC diam: 1.3 cm RVD1 (basal): 3.0 cm RVD2 (mid): 2.3 cm TAPSE: 2.5 cm Doppler Measurements & Calculations Ao V2 max: 127.4 cm/sec LVOT Max Les: 95.6 cm/sec Ao V2 mean: 91.4 cm/sec LV V1 max P.7 mmHg Ao max P.5 mmHg LV V1 VTI: 24.1 cm Ao mean P.7 mmHg SERGO(I,D): 2.0 cm2 Ao V2 VTI: 33.7 cm SERGO(V,D): 2.1 cm2 sev ratio: 0.71 SERGO indexed to BSA (cm^2/m^2): 1.2 MV E max les: 87.4 cm/sec TR max les: 296.2 cm/sec MV A max les: 117.4 cm/sec TR max P.1 mmHg MV E/A: 0.74 PA V2 max: 77.9 cm/sec Med Peak E' Les: 6.6 cm/sec PA V2 mean: 56.3 cm/sec E/E' med: 13.2 PA mean P.4 mmHg Lat Peak E' Les: 8.3 cm/sec PA pr(Accel): 29.3 mmHg E/E' lat: 10.5 E/e' average: 11.8 MV dec time: 0.32 sec SV(LVOT): 67.5 ml Reading Physician:01:29 PM
--- NOTE | 2023-07-15 09:02 | DI.US.S_ITS ---
PROCEDURE: US CAROTID DOPPLER BI INDICATIONS: Thoracic aortic ectasia TECHNIQUE: Color and pulse Doppler interrogation was performed of both carotid systems, with image documentation and velocity measurements. COMPARISON: [facility], US, US CAROTID BILATERAL, 08/21/2019, 11:31. [facility], US, US CAROTID DOPPLER BI, 08/06/2021, 12:25. FINDINGS: Stenosis calculations are based on SRU (Society of Radiologists in Ultrasound) criteria. The flow velocities and the arterial waveforms are normal within both carotid arterial systems. Atherosclerotic plaque is seen on both sides. The estimated degree of internal carotid artery stenosis is less than 50%. Antegrade flow is confirmed within both vertebral arteries. Tortuosity is noted of the left internal carotid artery. IMPRESSION: No hemodynamically significant stenosis is seen. Atherosclerotic plaque is noted bilaterally. Similar to prior. Dictated by: Isaiah Barker M.D. on 07/15/2023 at 9:56 Approved by: Isaiah Barker M.D. on 07/15/2023 at 9:57
== END ==
LOC: ECHO 09:01
PROVIDERS: Family Provider Internal Medicine; PCP Internal Medicine; Referring Provider Internal Medicine Cardiovascular Disease; Visit Provider Internal Medicine Cardiovascular Disease
DX: I77.810 Thoracic aortic ectasia (principal); I65.23 Occlusion and stenosis of bilateral carotid arteries; I08.3 Combined rheumatic disorders of mitral, aortic and tricuspid valves; I77.89 Other specified disorders of arteries and arterioles
CPT/HCPCS: 93306; 93880

== ENCOUNTER → 2024-11-26 09:48 | Outpatient (CLI) | payer OTHER, SELFPAY ==
--- NOTE | 2024-11-26 09:49 | DI.NM.S_ITS ---
PROCEDURE: NM BONE SCAN WHOLE BODY RADIOPHARMACEUTICAL: 21.7 mCi Tc-99m MDP IV. INDICATIONS: w/ spect of thoracic spine for T10 foci on MRI TECHNIQUE: Delayed whole-body scintigrams were obtained approximately 3-4 hours after intravenous injection of radiotracer. Anterior and posterior views were acquired from vertex to feet. COMPARISON: None. FINDINGS: Degenerate uptake in the left side facet of L2. No radiotracer uptake noted within the T10 vertebral body. IMPRESSION: No radiotracer uptake noted within the T10 vertebral body to suggest bone remodeling. Dictated by: Maurizio Maya M.D. on 11/26/2024 at 16:14 Approved by: Maurizio Maya M.D. on 11/26/2024 at 16:15
== END ==
LOC: NUCM 09:49
PROVIDERS: PCP Family Medicine; Referring Provider Family Medicine; Visit Provider Family Medicine
DX: R93.7 Abnormal findings on diagnostic imaging of other parts of musculoskeletal system (principal)
CPT/HCPCS: 78305; A9503

== ENCOUNTER → 2024-12-01 09:39 | Outpatient (CLI) | payer OTHER, SELFPAY ==
[2024-12-01 11:46] LABS: Alanine Aminotransferase 19 IU/L (<35); Albumin 3.7 g/dL (3.5-5.0); Albumin Globulin Ratio 1.4 (1.0-2.8); Alkaline Phosphatase 58 U/L (38-126); Blood Urea Nitrogen 19 mg/dL (7-17); Calcium 9.0 mg/dL (8.4-10.2); Carbon Dioxide 27 mmol/L (22-32); Chloride 101 mmol/L (98-107); Cholesterol 123 mg/dL (140-199); Estimated Glomerular Filt Rate > 60 mL/min (>60); Globulin 2.7 g/dL (1.7-4.1); Glucose 94 mg/dL (70-99); HDL Cholesterol 82 mg/dL (40-60); HEMOLYSIS < 15 (0-50); Potassium 4.7 mmol/L (3.4-5.1); Sodium 136 mmol/L (137-145); Total Protein 6.4 g/dL (6.3-8.2); Triglycerides 70 mg/dL (35-150)
== END ==
PROVIDERS: PCP Family Medicine; Referring Provider Internal Medicine Cardiovascular Disease; Visit Provider Internal Medicine Cardiovascular Disease
DX: I10 Essential (primary) hypertension (principal)
CPT/HCPCS: 36415; 80053; 80061